=== PATIENT | female | born 1985 | race Caucasian/White ===

== ENCOUNTER → 2016-10-29 | Outpatient (CLI) | payer BC, OTHER ==
[2016-10-29 09:55] LABS: Basophils # (A) 0.1 k/uL (0-0.2); Basophils % (A) 1 %; CH 29.6; CHCM 31.7; Eosinophils # (A) 0.2 k/uL (0-0.7); Eosinophils % (A) 3 %; HCT 42.8 % (34.0-46.0); HDW 2.45; HGB 13.9 gm/dL (11.4-16.0); Luc # (Auto) 0.16; Luc % (Auto) 3; Lymphocytes # (A) 2.5 k/uL (1.0-4.8); Lymphocytes % (A) 45 %; MCH 30.6 pg (25.0-35.0); MCHC 32.6 g/dL (31.0-37.0); Mean Platelet Volume 7.2; Monocytes # (A) 0.4 k/uL (0-1.0); Monocytes % (A) 7 %; Neutrophils # (A) 2.3 k/uL (1.3-7.7); Neutrophils % (A) 42 %; RBC 4.55 m/uL (3.80-5.40); RDW 13.7 % (11.5-15.5); WBC 5.6 k/uL (3.8-10.6); WBC (Perox) 5.77
[2016-10-29 10:11] LABS: ALT 25 U/L (9-52); AST 13 U/L (14-36); Alkaline Phosphatase 60 U/L (38-126); Anion Gap 11 mmol/L; Blood Urea Nitrogen 10 mg/dL (7-17); Calcium 9.6 mg/dL (8.4-10.2); Carbon Dioxide 27 mmol/L (22-30); Chloride 104 mmol/L (98-107); Glucose 89 mg/dL (74-99); Non-African American GFR(MDRD) >60 (>60 ml/min/1.73 sqM); Potassium 4.6 mmol/L (3.5-5.1); Sodium 142 mmol/L (137-145); Total Bilirubin 0.8 mg/dL (0.2-1.3); Total Protein 7.3 g/dL (6.3-8.2)
[2016-10-29 10:25] LABS: Partial Thromboplastin Time 23.4 sec (22.0-30.0); Prothrombin Time 10.2 sec (9.0-12.0)
== END | disposition home or self-care (01) ==
LOC: LABWHC1 09:14
PROVIDERS: ATTEND Urology
DX: N20.0 Calculus of kidney (principal)
CPT/HCPCS: 36415; 80053; 85025; 85610; 85730

== ENCOUNTER → 2017-01-01 | Outpatient (CLI) | payer BC, OTHER ==
[2017-01-01 16:09] LABS: Basophils % (A) 1 %; CH 29.4; CHCM 32.8; Eosinophils # (A) 0.1 k/uL (0-0.7); Eosinophils % (A) 1 %; HCT 39.8 % (34.0-46.0); HDW 2.62; HGB 13.9 gm/dL (11.4-16.0); Luc # (Auto) 0.28; Luc % (Auto) 4; Lymphocytes % (A) 30 %; MCH 31.5 pg (25.0-35.0); MCHC 34.9 g/dL (31.0-37.0); MCV 90.1 fL (80.0-100.0); Mean Platelet Volume 7.2; Monocytes # (A) 0.8 k/uL (0-1.0); Monocytes % (A) 12 %; Neutrophils # (A) 3.4 k/uL (1.3-7.7); Neutrophils % (A) 51 %; RBC 4.41 m/uL (3.80-5.40); RDW 13.6 % (11.5-15.5); WBC 6.6 k/uL (3.8-10.6); WBC (Perox) 7.23
== END | disposition home or self-care (01) ==
LOC: LABWHC1 15:20
PROVIDERS: ATTEND Pediatrics
DX: R78.81 Bacteremia (principal)
CPT/HCPCS: 36415; 85025; 87040

== ENCOUNTER → 2018-03-24 | Outpatient (CLI) | payer BC, OTHER ==
--- NOTE | 2018-03-25 00:39 | CT ---
EXAMINATION TYPE: CT abdomen pelvis wo con DATE OF EXAM: 03/24/2018 COMPARISON: None HISTORY: 32-year-old female Kidney stones. CT DLP: 135.5 mGycm. Automated exposure control for dose reduction was used. TECHNIQUE: Contiguous axial scanning of the abdomen and pelvis without IV contrast. Coronal and sagit sheyla reconstructions performed. FINDINGS: Severe developmental deformity with hairpin curvature at the thoracolumbar junction with apex of the hairpin projecting posteriorly in the anterior vertebral body margin nearly in contact with each othe r. Visualized lung bases are clear. Only a small portion of the heart is seen. Lack of IV contrast limits assessment. Possible 2.6 cm soft tissue nodule near the right shazia of the diaphragm, referred axial image 27 and coronal image 41. Noncontrast appearance of the liver, gallbladder, left adrenal gland, and spleen show no gross abnorm ality. Pancreas is not well delineated from adjacent small bowel loops. Punctate 2 to 3 mm calculi are present throughout the right kidney. Numerous calculi are present on the left,, proximally 9 calculi measuring up to 9 mm. 1.2 cm hypodens e lesion upper pole left kidney too small fracture CT characterization, likely cysts. A couple 3 mm calculi are present in the upper left ureter just beyond the UPJ. Mild left-sided pelvi caliectasis. No dilated small bowel, free fluid, or free air. Cystic-appearing lesion measuring 2.1 cm right adnex a probably of ovarian origin. There is moderate to large stool burden with LEARNING DISABILITIES RESOURCE TEACHER shunt catheter present. There is circumferential wall thickening of the rectum with stool distention of the rectum up to 7.1 x 5.9 cm stool ball measuring up to 7.5 cm long. This may reflect fecal impaction. No abnormal fluid collection in the pelvis or pelvic lymphadenopathy identified. LEARNING DISABILITIES RESOURCE TEACHER shunt catheters are present within the lower abdomen and upper pelvis. Bones: Above-mentioned spine deformity. IMPRESSION: 1. Severe developmental deformity of the spine with posteriorly directed hairpin curvature at the th oracolumbar junction and the anterior vertebral body margins nearly in contact with each other. 2. Bilateral nephrolithiasis more numerous and larger in the left kidney measuring up to 9 mm. 3. A couple 3 mm calculi within the upper left ureter just beyond the UPJ but without any significant hydronephrosis. 4. Solid stool ball measuring 7.5 cm long and 7.1 cm wide excessively distending the rectum. Correlat e for fecal impaction. Note that there is moderate circumferential wall thickening of the rectum. Thi s may relate to venous congestion from chronic distention versus changes of stercoral colitis. Furthe r clinical correlation recommended. 5. Follow-up contrast-enhanced CT to exclude an abnormally enlarged 2.5 cm lymph node in the upper ri ght retroperitoneum.
== END | disposition home or self-care (01) ==
LOC: RADCTMAIN 19:05
PROVIDERS: ATTEND Urology
DX: N20.2 Calculus of kidney with calculus of ureter (principal); K62.89 Other specified diseases of anus and rectum
CPT/HCPCS: 74176

== ENCOUNTER → 2018-12-27 | Outpatient (CLI) | payer BC, OTHER ==
[2018-12-27 09:08] LABS: Basophils % (A) 1 %; Eosinophils # (A) 0.2 k/uL (0-0.7); Eosinophils % (A) 4 %; HCT 39.8 % (34.0-46.0); HGB 12.3 gm/dL (11.4-16.0); Hypochromasia Moderate; Lymphocytes # (A) 2.8 k/uL (1.0-4.8); Lymphocytes % (A) 49 %; MCH 27.8 pg (25.0-35.0); MCV 89.5 fL (80.0-100.0); Mean Platelet Volume 7.6; Monocytes # (A) 0.4 k/uL (0-1.0); Monocytes % (A) 7 %; Neutrophils # (A) 2.1 k/uL (1.3-7.7); Neutrophils % (A) 37 %; Platelet Count 272 k/uL (150-450); RBC 4.45 m/uL (3.80-5.40); RDW 14.5 % (11.5-15.5); WBC 5.7 k/uL (3.8-10.6)
[2018-12-27 16:03] LABS: African American GFR (CKD) 148.4 (60.0-200.0); Albumin 4.5 g/dL (3.80-4.90); Albumin/Globulin Ratio 1.8 (1.60-3.17); Anion Gap 8.9 mmol/L (4.00-12.00); Calcium 9.7 mg/dL (8.7-10.3); Carbon Dioxide 24.1 mmol/L (21.6-31.8); Globulin 2.5 g/dL (1.6-3.3); Phosphorus 3.6 mg/dL (2.4-5.1); Potassium 4.8 mmol/L (3.5-5.5); Total Bilirubin 0.5 mg/dL (0.3-1.2)
== END | disposition home or self-care (01) ==
LOC: LABWHC1 08:28
PROVIDERS: ATTEND Internal Medicine
DX: Z13.0 Encounter for screening for diseases of the blood and blood-forming organs and certain disorders involving the immune mechanism (principal); Z13.228 Encounter for screening for other metabolic disorders; Z13.220 Encounter for screening for lipoid disorders; Z13.29 Encounter for screening for other suspected endocrine disorder; Z87.442 Personal history of urinary calculi
CPT/HCPCS: 36415; 80053; 80061; 82306; 84100; 84443; 85025

== ENCOUNTER 2019-03-03 19:51 | Emergency (ER) | payer BC, OTHER ==
[2019-03-03 20:33] VITALS: BP 122/73; PULSE 77; RESP 16; TEMP 99.6
[2019-03-03] MEDS ORDERED: predniSONE 20 MG TAB PO STA (21:30)
[2019-03-03] MEDS ORDERED: AZITHROMYCIN 500 MG TAB PO STA (21:30)
[2019-03-03] MEDS ORDERED: OFLOXACIN 0.3% OPHTH DROPS 5 ML BOTTLE LEFT EAR STA (21:30)
--- NOTE | 2019-03-03 21:38 | ED ---
ENT HPI - General Chief complaint: ENT Stated complaint: Ear pain Time Seen by Provider: 03/03/19 21:12 Source: patient, family, RN notes reviewed, old records reviewed Mode of arrival: wheelchair Limitations: no limitations - History of Present Illness Initial comments: Patient is a 33-year-old female with history of hydrocephalus, spina bifida and kidney stones. She has been on chronic Bactrim for a kidney stone and infection prevention. She presents today with complaints of left ear pain for 2 days Patient dealing with left ear irritation for the past month. She's been on multiple decongestant medications. Patient is also concern for possibility of related to dental infection. This time she states she's had no fevers or chills. She denies any headache or neck pain. Patient states that she's had no cough or other significant congestion. - Related Data Home Medications Medication Instructions Recorded Confirmed Enalapril [Vasotec] 2.5 mg PO HS 03/03/19 03/03/19 Previous Rx's Medication Instructions Recorded Azithromycin [Zithromax Z-pack] 250 mg PO DIRECTED #4 tab 03/03/19 Ofloxacin 0.3% Otic Soln [Floxin 5 drops LEFT EAR BID #1 bottle 03/03/19 0.3% Otic Soln] methylPREDNISolone Dose Pack 4 mg PO DIRECTED #21 package 03/03/19 [Medrol Dose Pack] Allergies Allergy/AdvReac Type Severity Reaction Status Date / Time No Known Allergies Allergy Verified 03/03/19 21:20 Review of Systems ROS Statement: Those systems with pertinent positive or pertinent negative responses have been documented in the HPI. ROS Other: All systems not noted in ROS Statement are negative. Past Medical History Additional Past Medical History / Comment(s): hydrocephalus, spina bifida, kidney stones History of Any Multi-Drug Resistant Organisms: None Reported Additional Past Surgical History / Comment(s): VARNISHER PLASTICOATER shunt, reconstructive surgery on head Smoking Status: Never smoker Past Alcohol Use History: None Reported Past Drug Use History: None Reported General Exam - General Exam Comments Initial Comments: 33-year-old female. Alert and oriented. No distress. Limitations: no limitations General appearance: alert, in no apparent distress Head exam: Present: atraumatic, normocephalic, normal inspection Eye exam: Present: normal appearance, PERRL, EOMI. Absent: scleral icterus, conjunctival injection, periorbital swelling ENT exam: Present: normal exam, normal oropharynx (Erythema over L tm. ), mucous membranes moist Neck exam: Present: normal inspection. Absent: tenderness, meningismus, lymphadenopathy Respiratory exam: Present: normal lung sounds bilaterally. Absent: respiratory distress, wheezes, rales, rhonchi, stridor Cardiovascular Exam: Present: regular rate, normal rhythm, normal heart sounds. Absent: systolic murmur, diastolic murmur, rubs, gallop, clicks GI/Abdominal exam: Present: soft, normal bowel sounds. Absent: distended, tenderness, guarding, rebound, rigid Extremities exam: Present: normal inspection, full ROM, normal capillary refill. Absent: tenderness, pedal edema, joint swelling, calf tenderness Back exam: Present: normal inspection Neurological exam: Present: alert, oriented X3, CN II-XII intact Psychiatric exam: Present: normal affect, normal mood Skin exam: Present: warm, dry, intact, normal color. Absent: rash Course Vital Signs 03/03/19 20:27 Temperature 99.6 F Pulse Rate 77 Respiratory 16 Rate Blood Pressure 122/73 O2 Sat by Pulse 98 Oximetry Medical Decision Making - Medical Decision Making 33-year-old female presents emergency department today for evaluation with chief complaint of left ear pain. Patient does have some erythema noted to the left TM. Patient has a history of spina bifida wheelchair-bound. Patient at this time does have some sign of infection. She also has some swelling over the molar in her left lower jaw. At this time Patient will be discharged with prescription for steroids and anti-inflammatory medicine. Discussed Motrin Tylenol for pain. Discharged with of antibiotics for the ear. She is following up with an ENT specialist next week. Disposition Clinical Impression: Left middle ear infection Disposition: HOME SELF-CARE Condition: Good Instructions (If sedation given, give patient instructions): Earache (ED) Additional Instructions: Patient has a take Motrin and Tylenol for pain. Follow-up with PCP. Return to the emergency department if any alarming signs or symptoms occur. Take the medications as prescribed. Prescriptions: Ofloxacin 0.3% Otic Soln [Floxin 0.3% Otic Soln] 5 drops LEFT EAR BID #1 bottle methylPREDNISolone Dose Pack [Medrol Dose Pack] 4 mg PO DIRECTED #21 package Azithromycin [Zithromax Z-pack] 250 mg PO DIRECTED #4 tab Is patient prescribed a controlled substance at d/c from ED?: No Referrals: Elif Lopez MD [Primary Care Provider] - 1-2 days Cristi Petit DDS [STAFF PHYSICIAN] - 1-2 days Jose Luis Parker MD [STAFF PHYSICIAN] - 1-2 days Time of Disposition: 21:35
== END 2019-03-03 22:04 | disposition home or self-care (01) ==
LOC: EEVIPCON 19:51 → EC 19:51
DX: H66.92 Otitis media, unspecified, left ear (principal); R22.0 Localized swelling, mass and lump, head; Z99.3 Dependence on wheelchair; Z79.899 Other long term (current) drug therapy; Z86.69 Personal history of other diseases of the nervous system and sense organs; Z87.798 Personal history of other (corrected) congenital malformations; Z98.2 Presence of cerebrospinal fluid drainage device; Z98.890 Other specified postprocedural states
CPT/HCPCS: 99283; J7512

== ENCOUNTER → 2019-04-06 | Day surgery (SDC) | payer BC, OTHER ==
[2019-04-01 10:46] VITALS: BMI 11.5
[~2019-04-06] MED LIST: ACETAMINOPHEN ORAL SUSP 160 MG/5 ML CUP PO ONE; DEXAMETHASONE SOD PHOSPHATE 10 MG/ML 1 ML VIAL IV ONE; GELATIN SPONGE,ABSORB (SMALL) 1 EACH SPONGE TOPICAL ONE; HYDROmorphone 0.5 MG/0.5 ML SYRINGE IVP PRN; LACTATED RINGERS 1,000 ML IV SCH; LIDOCAINE 1% 20 ML VIAL (10MG/ML) FOR IV START INTRADERMA PRN; LIDOCAINE 1% INJ 10MG/ML (20 ML MDV) ONE; LIDOCAINE 2%-EPI 1:100,000 20 ML VIAL SUBMUCOSAL ONE; METRONIDAZOLE NS PMX IVPB ONE; MIDAZOLAM (PF) 2 MG/2 ML VIAL IV ONE; MIDAZOLAM ORAL SYRUP 10 MG/5 ML ORAL.SYRG PO ONE; ONDANSETRON 4 MG/2 ML VIAL IVP ONE; PROPOFOL 10 MG/ML 20 ML VIAL IV ONE; SALINE IVPB ONE; SCOPOLAMINE 1.5MG/72HR PATCH TRANSDERM ONE; ceFAZolin 1,000 MG VIAL IVPB ONE; diphenhydrAMINE 50 MG/ML 1 ML VIAL IVP ONE; metroNIDAZOLE-NS PMX 250 MG in SALINE 1 100ML.BAG IVPB ONE; metroNIDAZOLE-NS PMX 500 MG in SALINE 1 100ML.BAG IVPB ONE
[2019-04-06 08:27] VITALS: TEMP 97.4
--- NOTE | 2019-04-06 08:57 | OP ---
OPERATIVE REPORT DATE OF PROCEDURE: 04/06/2019 PREOPERATIVE DIAGNOSES: 1. Dental caries. 2. Abscessed tooth #12. POSTOPERATIVE DIAGNOSES: 1. Dental caries. 2. Abscessed tooth #12. SURGERY: Surgical extraction of teeth #12 and #13. SURGEON: Dr. Johnson. ANESTHESIA: General via the inhalational route. ESTIMATED BLOOD LOSS: 1 mL. FLUIDS: Crystalloid. DRAINS: None. COMPLICATIONS: None. SPECIMENS: None. INDICATIONS FOR PROCEDURE: The patient is a 33-year-old female who lives with her mother who is severely physically impaired secondary to her spina bifida. She states that she has acute pain to the upper left quadrant and that it is inhibiting her ability to eat. Patient is referred for the evaluation and extraction of teeth #12 and #13. Patient has severe anxiety from a traumatic event with a dentist in the past and requires deep sedation or general anesthetic to extract teeth #12 and #13. The risks, benefits, and alternatives of the procedure were reviewed with the patient and mother at length and all their questions answered to their satisfaction. The patient will undergo removal of teeth #12 and #13 in the OR setting. PROCEDURE: The patient was taken the operating room, placed on the operating table in the sitting position. The patient was then induced via the IV route and a general plane of anesthesia was maintained utilizing an inhalational mask technique. The patient was prepped and draped in usual manner. The surgeon approached the operative field and a throat pack was placed notifying both nursing and anesthesia. Next 2 mL of 2% lidocaine with 1:100,000 parts epinephrine was infiltrated into the region of 12 and 13 on the buccal and palatal aspect. Next, a 15 blade was utilized to develop a small flap and an elevator and forceps technique was utilized to remove teeth #12 and 13. Gel-Foam was then placed into the wound. Hemostasis was observed. The throat pack was then removed notifying both nursing and anesthesia. The patient tolerated the procedure well without complications. MMODL / IJN: [id number] /
[2019-04-06 09:09] VITALS: RESP 18
[2019-04-06 10:28] VITALS: BP 109/76; PULSE 111
== END ==
LOC: OR 06:30
PROVIDERS: ATTEND Dentist Oral and Maxillofacial Surgery
DX: K02.9 Dental caries, unspecified (principal); K04.7 Periapical abscess without sinus; F40.8 Other phobic anxiety disorders; I10 Essential (primary) hypertension; I34.1 Nonrheumatic mitral (valve) prolapse; Q07.03 Arnold-Chiari syndrome with spina bifida and hydrocephalus; M41.9 Scoliosis, unspecified; E55.9 Vitamin D deficiency, unspecified; J45.909 Unspecified asthma, uncomplicated; F81.9 Developmental disorder of scholastic skills, unspecified; H69.92 Unspecified Eustachian tube disorder, left ear; Z99.3 Dependence on wheelchair; Z87.442 Personal history of urinary calculi; Z91.040 Latex allergy status; Z79.899 Other long term (current) drug therapy; Z88.8 Allergy status to other drugs, medicaments and biological substances; Z98.890 Other specified postprocedural states
CPT/HCPCS: 41899; J1200; J2405; J0690; J2001; J2704; J2250

== ENCOUNTER 2021-10-30 09:12 | Emergency (ER) | payer MEDICARE, OTHER ==
[2021-10-30 13:07] VITALS: BP 103/67; PULSE 132; RESP 18; TEMP 98.9
--- NOTE | 2021-10-30 13:07 | ED ---
General Adult HPI - General Stated complaint: Abd Pain, Fever Time Seen by Provider: 10/30/21 12:54 - History of Present Illness Initial comments: This 35-year-old female presents emergency Department with abdominal pain and fever times one day. Mother in room states patient was diagnosed with pneumonia on 10/25/21 and was given Augmentin which patient has been taking as directed. Patient states her cough has subsided since been placed on this antibiotic and her fever did resolve for 3 days before returning yesterday evening. Patient states she has been experiencing right upper quadrant abdominal pain along with diarrhea since yesterday. Patient states she does have a history of kidney stones which are closely being monitored. States she has a history of vesicotomy. Patient states she has a history of GYROSCOPE REPAIRER shunt since , she denies any neuro systems or headache. Patient states her abdominal pain is 8/10 and aching in nature. Patient did have a temperature of 102.6 today and was given Motrin prior to presenting to the emergency department. Patient denies any chest pain, nausea, vomiting, constipation, change in bladder, headache, lightheadedness, dizziness, cough, congestion. - Related Data Home Medications Medication Instructions Recorded Confirmed Enalapril [Vasotec] 2.5 mg PO HS 03/03/19 04/06/19 Amoxic-Pot Clav 600-42.9MG/5Ml 6.6 ml PO Q12H 10/30/21 10/30/21 [Augmentin 600-42.9 mg/5 ml Liquid] Allergies Allergy/AdvReac Type Severity Reaction Status Date / Time latex AdvReac dad states Verified 10/30/21 18:02 "hx no rx but used as precautionary" Review of Systems ROS Statement: Those systems with pertinent positive or pertinent negative responses have been documented in the HPI. ROS Other: All systems not noted in ROS Statement are negative. 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,vesicotomy-urine drains into brief, kidney stones,hydrocephalus,chiari malformation type II,mitral valve regurgitation,scoliosis,focal seizures-no seizures in years History of Any Multi-Drug Resistant Organisms: None Reported Additional Past Surgical History / Comment(s): GYROSCOPE REPAIRER shunt-approx 50 surgeries/revisions, reconstructive surgery on head,mult kidney stones procedures,vesicotomy.(greater than 60 surgeries altogether) Past Anesthesia/Blood Transfusion Reactions: Previous Problems w/ Anesthesia Additional Past Anesthesia/Blood Transfusion Reaction / Comment(s): mom-LG, stated "Dorina had a problems being extubated post kidney stone procedure and was on the ventilator 1 1/2 days awake trying to be weaned off. Procedure was at [facility] Aug 2012. But also states has had surgeries after this with general anesthesia without any difficulty,has had over 60 surgeries", faxed request for Anesthesia Record,Pulmonary note, discharge summary for reference.Very sensitive gag reflex. no hx blood transfusion Past Psychological History: Anxiety Past Alcohol Use History: None Reported Past Drug Use History: None Reported - Past Family History Mother Family Medical History: No Reported History General Exam General appearance: alert, in no apparent distress Head exam: Present: atraumatic, normocephalic, normal inspection Eye exam: Present: normal appearance, PERRL, EOMI. Absent: scleral icterus, conjunctival injection, periorbital swelling Pupils: Present: normal accommodation ENT exam: Present: normal exam, mucous membranes moist Neck exam: Present: normal inspection, full ROM. Absent: tenderness, meningismus, lymphadenopathy Respiratory exam: Present: normal lung sounds bilaterally. Absent: respiratory distress, wheezes, rales, rhonchi, stridor, chest wall tenderness Cardiovascular Exam: Present: regular rate, normal rhythm, normal heart sounds. Absent: systolic murmur, diastolic murmur, rubs, gallop, clicks GI/Abdominal exam: Present: soft, tenderness (Right upper quadrant tender to deep palpation), normal bowel sounds. Absent: distended, guarding, rebound, rigid Extremities exam: Present: normal inspection, full ROM, normal capillary refill. Absent: tenderness, pedal edema, joint swelling, calf tenderness Back exam: Absent: normal inspection (Patient with spina bifida- patient unable to feel below her waist which has been ongoing for years no new symptoms), CVA tenderness (R), CVA tenderness (L), paraspinal tenderness, vertebral tenderness Neurological exam: Present: alert, oriented X3, CN II-XII intact Psychiatric exam: Present: normal affect, normal mood Skin exam: Present: warm, dry, intact, normal color. Absent: rash Course Vital Signs 10/30/21 13:02 Temperature 98.9 F Pulse Rate 132 H Respiratory 18 Rate Blood Pressure 103/67 O2 Sat by Pulse 95 Oximetry Medical Decision Making - Medical Decision Making This 35-year-old female presents emergency department with abdominal pain and fever times one day. Patient was diagnosed with pneumonia 5 days ago, her fever and cough have subsided up until yesterday when her fever returned. Chest x-ray without any evidence of acute cardiopulmonary disease. Ultrasound gallbladder w ith possible hemangioma within the liver. No suspicious acute changes to account for epigastric pain. Gallbladder within normal limits-- I did instruct patient to follow-up with her primary care provider for the possible hemangioma. Patient without any leukocytosis. Coagulation unremarkable. Potassium 3.0, oral potassium given. Lactic acid 2.4, 500 L normal saline bolus given to patient. Coronavirus detected. Urine sent for culture. Patient's mother in room states patient's heart rate is regularly tachycardic and in the 115-[address] for years. Patient instructed to follow up with her primary care provider in next 1-2 days. Strict return precautions were discussed. Patient and mother verbally agreed to plan. Patient sent home in stable condition. Case discussed in detail my attending, . - Lab Data Result diagrams: 10/30/21 14:23 10/30/21 14:23 Lab Results 10/30/21 10/30/21 10/30/21 Range/Units 14:23 14:23 14:23 WBC 9.0 (3.8-10.6) k/uL RBC 4.54 (3.80-5.40) m/uL Hgb 13.8 (11.4-16.0) gm/dL Hct 41.8 (34.0-46.0) % MCV 92.1 (80.0-100.0) fL MCH 30.5 (25.0-35.0) pg MCHC 33.1 (31.0-37.0) g/dL RDW 13.8 (11.5-15.5) % Plt Count 149 L (150-450) k/uL MPV 9.0 PT 10.2 (9.0-12.0) sec INR 0.9 (<1.2) APTT 26.7 (22.0-30.0) sec Sodium 136 L (137-145) mmol/L Potassium 3.0 L (3.5-5.1) mmol/L Chloride 101 (98-107) mmol/L Carbon Dioxide 25 (22-30) mmol/L Anion Gap 10 mmol/L BUN 8 (7-17) mg/dL Creatinine 0.44 L (0.52-1.04) mg/dL Est GFR (CKD-EPI)AfAm >90 (>60 ml/min/1.73 sqM) Est GFR (CKD-EPI)NonAf >90 (>60 ml/min/1.73 sqM) Glucose 107 H (74-99) mg/dL Lactic Ac Sepsis Rflx Plasma Lactic Acid Alonzo (0.7-2.0) mmol/L Calcium 8.3 L (8.4-10.2) mg/dL Total Bilirubin 1.7 H (0.2-1.3) mg/dL AST 17 (14-36) U/L ALT 13 (4-34) U/L Alkaline Phosphatase 56 (38-126) U/L Total Protein 6.2 L (6.3-8.2) g/dL Albumin 3.2 L (3.5-5.0) g/dL Amylase 42 (30-110) U/L Lipase 19 L (23-300) U/L Urine Color Urine Appearance (Clear) Urine pH (5.0-8.0) Ur Specific [place] (1.001-1.035) Urine Protein (Negative) Urine Glucose (UA) (Negative) Urine Ketones (Negative) Urine Blood (Negative) Urine Nitrite (Negative) Urine Bilirubin (Negative) Urine Urobilinogen (<2.0) mg/dL Ur Leukocyte Esterase (Negative) Urine RBC (0-5) /hpf Urine WBC (0-5) /hpf Ur Squamous Epith Cells (0-4) /hpf Urine Mucus (None) /hpf Urine HCG, Qual (Not Detectd) Coronavirus (PCR) (Not Detectd) Influenza Type A RNA (Not Detectd) Influenza Type B (PCR) (Not Detectd) 10/30/21 10/30/21 10/30/21 Range/Units 14:23 15:33 16:10 WBC (3.8-10.6) k/uL RBC (3.80-5.40) m/uL Hgb (11.4-16.0) gm/dL Hct (34.0-46.0) % MCV (80.0-100.0) fL MCH (25.0-35.0) pg MCHC (31.0-37.0) g/dL RDW (11.5-15.5) % Plt Count (150-450) k/uL MPV PT (9.0-12.0) sec INR (<1.2) APTT (22.0-30.0) sec Sodium (137-145) mmol/L Potassium (3.5-5.1) mmol/L Chloride (98-107) mmol/L Carbon Dioxide (22-30) mmol/L Anion Gap mmol/L BUN (7-17) mg/dL Creatinine (0.52-1.04) mg/dL Est GFR (CKD-EPI)AfAm (>60 ml/min/1.73 sqM) Est GFR (CKD-EPI)NonAf (>60 ml/min/1.73 sqM) Glucose (74-99) mg/dL Lactic Ac Sepsis Rflx Y Plasma Lactic Acid Alonzo 2.4 H* (0.7-2.0) mmol/L Calcium (8.4-10.2) mg/dL Total Bilirubin (0.2-1.3) mg/dL AST (14-36) U/L ALT (4-34) U/L Alkaline Phosphatase (38-126) U/L Total Protein (6.3-8.2) g/dL Albumin (3.5-5.0) g/dL Amylase (30-110) U/L Lipase (23-300) U/L Urine Color Urine Appearance (Clear) Urine pH (5.0-8.0) Ur Specific [place] (1.001-1.035) Urine Protein (Negative) Urine Glucose (UA) (Negative) Urine Ketones (Negative) Urine Blood (Negative) Urine Nitrite (Negative) Urine Bilirubin (Negative) Urine Urobilinogen (<2.0) mg/dL Ur Leukocyte Esterase (Negative) Urine RBC (0-5) /hpf Urine WBC (0-5) /hpf Ur Squamous Epith Cells (0-4) /hpf Urine Mucus (None) /hpf Urine HCG, Qual (Not Detectd) Coronavirus (PCR) (Not Detectd) Influenza Type A RNA Not Detected (Not Detectd) Influenza Type B (PCR) Not Detected (Not Detectd) 10/30/21 10/30/21 10/30/21 Range/Units 16:10 17:10 17:10 WBC (3.8-10.6) k/uL RBC (3.80-5.40) m/uL Hgb (11.4-16.0) gm/dL Hct (34.0-46.0) % MCV (80.0-100.0) fL MCH (25.0-35.0) pg MCHC (31.0-37.0) g/dL RDW (11.5-15.5) % Plt Count (150-450) k/uL MPV PT (9.0-12.0) sec INR (<1.2) APTT (22.0-30.0) sec Sodium (137-145) mmol/L Potassium (3.5-5.1) mmol/L Chloride (98-107) mmol/L Carbon Dioxide (22-30) mmol/L Anion Gap mmol/L BUN (7-17) mg/dL Creatinine (0.52-1.04) mg/dL Est GFR (CKD-EPI)AfAm (>60 ml/min/1.73 sqM) Est GFR (CKD-EPI)NonAf (>60 ml/min/1.73 sqM) Glucose (74-99) mg/dL Lactic Ac Sepsis Rflx Plasma Lactic Acid Alonzo (0.7-2.0) mmol/L Calcium (8.4-10.2) mg/dL Total Bilirubin (0.2-1.3) mg/dL AST (14-36) U/L ALT (4-34) U/L Alkaline Phosphatase (38-126) U/L Total Protein (6.3-8.2) g/dL Albumin (3.5-5.0) g/dL Amylase (30-110) U/L Lipase (23-300) U/L Urine Color Yellow Urine Appearance Clear (Clear) Urine pH 7.0 (5.0-8.0) Ur Specific [place] 1.013 (1.001-1.035) Urine Protein 2+ H (Negative) Urine Glucose (UA) Negative (Negative) Urine Ketones 2+ H (Negative) Urine Blood Small H (Negative) Urine Nitrite Negative (Negative) Urine Bilirubin Negative (Negative) Urine Urobilinogen 2.0 (<2.0) mg/dL Ur Leukocyte Esterase Large H (Negative) Urine RBC 1 (0-5) /hpf Urine WBC 11 H (0-5) /hpf Ur Squamous Epith Cells <1 (0-4) /hpf Urine Mucus Rare H (None) /hpf Urine HCG, Qual Not Detected (Not Detectd) Coronavirus (PCR) Detected A (Not Detectd) Influenza Type A RNA (Not Detectd) Influenza Type B (PCR) (Not Detectd) Disposition Clinical Impression: Abdominal pain, COVID-19, Hypokalemia Disposition: HOME SELF-CARE Condition: Stable Instructions (If sedation given, give patient instructions): COVID-19 (Cor onavirus Disease 2019) (ED) Additional Instructions: Please follow-up with your primary care provider next 1-2 days. Return to the emergency department with any new, worsening or concerning symptoms. Take Tylenol for fever relief as directed. Is patient prescribed a controlled substance at d/c from ED?: No Referrals: Elif Lopez MD [Primary Care Provider] - 1-2 days Time of Disposition: 17:51
[2021-10-30 14:54] LABS: HCT 41.8 % (34.0-46.0); HGB 13.8 gm/dL (11.4-16.0); MCH 30.5 pg (25.0-35.0); MCHC 33.1 g/dL (31.0-37.0); MCV 92.1 fL (80.0-100.0); Platelet Count 149 k/uL (150-450); RBC 4.54 m/uL (3.80-5.40); RDW 13.8 % (11.5-15.5)
[2021-10-30 14:58] LABS: INR 0.9 (<1.2); Partial Thromboplastin Time 26.7 sec (22.0-30.0); Prothrombin Time 10.2 sec (9.0-12.0)
[2021-10-30 15:16] LABS: ALT 13 U/L (4-34); AST 17 U/L (14-36); African American GFR (CKD) >90 (>60 ml/min/1.73 sqM); Albumin 3.2 g/dL (3.5-5.0); Alkaline Phosphatase 56 U/L (38-126); Amylase 42 U/L (30-110); Anion Gap 10 mmol/L; Blood Urea Nitrogen 8 mg/dL (7-17); Calcium 8.3 mg/dL (8.4-10.2); Carbon Dioxide 25 mmol/L (22-30); Chloride 101 mmol/L (98-107); Glucose 107 mg/dL (74-99); Lipase 19 U/L (23-300); Non-African American GFR(CKD) >90 (>60 ml/min/1.73 sqM); Sodium 136 mmol/L (137-145); Total Bilirubin 1.7 mg/dL (0.2-1.3); Total Protein 6.2 g/dL (6.3-8.2)
--- NOTE | 2021-10-30 15:19 | US ---
EXAMINATION TYPE: US gallbladder DATE OF EXAM: 10/30/2021 COMPARISON: CT CLINICAL HISTORY: pain. EC patient with Epigastric pain; spina bifida, scoliosis EXAM MEASUREMENTS: Liver Length: 8.0 cm Gallbladder Wall: 0.2 cm CBD: 0.1 cm Right Kidney: 6.1 x 2.9 x 2.5 cm Pancreas: not seen due to overlying bowel gas Liver: hyperechoic oval mass at periphery left lobe = 0.8 x 0.6 x 0.5cm and may be hemangioma Gallbladder: wnl Evidence for sonographic Baeza's sign: no CBD: wnl Right Kidney: visualized right coronal plane; no renal stones visualized today IMPRESSION: 1. Possible hemangioma within the liver discussed above. 2. No suspicious acute changes to account for epigastric pain. 3. Pancreas not visualized during this exam
[2021-10-30] MEDS ORDERED: ACETAMINOPHEN TAB 325 MG TAB PO STA (15:29)
[2021-10-30] MEDS ORDERED: SODIUM CHLORIDE 0.9% 500 ML 500 ML IV STA (15:35)
--- NOTE | 2021-10-30 17:03 | XR ---
EXAMINATION TYPE: XR chest 2V DATE OF EXAM: 10/30/2021 COMPARISON: NONE HISTORY: Fever TECHNIQUE: 2 views FINDINGS: There is severe dextroscoliotic kyphotic deformity of the thoracolumbar spine. Lungs appear clear of infiltrate. Heart size is normal. No evidence of pleural effusion. IMPRESSION: No evidence of active cardiopulmonary disease.
[2021-10-30] MEDS ORDERED: POTASSIUM CHLORIDE ER 20 MEQ TAB.ER PO STA (17:12)
[2021-10-30 17:33] LABS: Appearance,Urine Clear (Clear); Bilirubin,Urine Negative (Negative); Blood,Urine Small (Negative); Color,Urine Yellow; Glucose,Urine (UA) Negative (Negative); Ketones,Urine 2+ (Negative); Leukocyte Esterase,Urine Large (Negative); Mucus,Urine Rare /hpf; Nitrite,Urine Negative (Negative); Protein,Urine 2+ (Negative); RBC,Urine 1 /hpf (0-5); Specific Gravity,Urine 1.013 (1.001-1.035); Squamous Epithelial Cell,Urine <1 /hpf (0-4); WBC,Urine 11 /hpf (0-5)
[2021-10-30 18:46] LABS: Band Neutrophils % 3 %; Monocytes # (M) 0.54 k/uL (0-1.0); Neutrophils % (M) 81 %; Nucleated Red Blood Cells 0 /100 WBC (0-0); Total Cells Counted 100
[2021-10-30 18:48] LABS: RBC Morphology Normal
== END 2021-10-30 19:00 | disposition home or self-care (01) ==
LOC: EC 09:12
DX: U07.1 COVID-19 (principal); E87.6 Hypokalemia; I10 Essential (primary) hypertension; Z79.899 Other long term (current) drug therapy
CPT/HCPCS: 36415; 71046; 76705; 80053; 81001; 81025; 82150; 83605; 83690; 85025; 85610; 85730; 87086; 87502; 87635; 96360; 96361; 99284

== ENCOUNTER 2021-10-31 00:51 | Inpatient (IN) | payer MEDICARE, OTHER ==
--- NOTE | 2021-10-31 05:21 | ED ---
Abdominal Pain HPI - General Chief Complaint: Abdominal Pain Stated Complaint: Abdominal Pain Time Seen by Provider: 10/31/21 04:47 Source: patient, family Mode of arrival: wheelchair Limitations: physical limitation - History of Present Illness Initial Comments: Dorina is a 35-year-old female with a history of spina bifida multiple surgeries in the past. Patient presents the ER today for reevaluation of abdominal discomfort, nausea, vomiting, diarrhea. Patient was evaluated earlier diagnosed with COVID-19 pneumonia. She is also noted to be hypokalemic and given oral potassium which she reports caused multiple episodes of vomiting. - Related Data Home Medications Medication Instructions Recorded Confirmed Enalapril [Vasotec] 2.5 mg PO HS 03/03/19 10/31/21 Amoxic-Pot Clav 600-42.9MG/5Ml 6.6 ml PO Q12H 10/30/21 10/31/21 [Augmentin 600-42.9 mg/5 ml Liquid] Allergies Allergy/AdvReac Type Severity Reaction Status Date / Time latex AdvReac dad states Verified 10/31/21 07:34 "hx no rx but used as precautionary" Review of Systems ROS Statement: Those systems with pertinent positive or pertinent negative responses have been documented in the HPI. ROS Other: All systems not noted in ROS Statement are negative. 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 Procedure was at [facility] Aug 2012. But also states has had surgeries after this with general anesthesia without any difficulty,has had over 60 surgeries", faxed request for Anesthesia Record,Pulmonary note, discharge summary for reference .Very sensitive gag reflex. no hx blood transfusion Past Psychological History: Anxiety Past Alcohol Use History: None Reported Past Drug Use History: None Reported - Past Family History Mother Family Medical History: No Reported History General Exam - General Exam Comments Initial Comments: Physical Exam GENERAL: No acute distress HENT: Microcephalic, surgical scars noted EYES: PERRL PULMONARY: Unlabored respirations. CARDIOVASCULAR: RRR ABDOMEN: Soft, distended, non-peritoneal SKIN: No rashes or bruising : Deferred urostomy in lower abdomen NEUROLOGIC: Alert and oriented MUSCULOSKELETAL: Underdevelopment of limbs, paraplegia PSYCHIATRIC: No SI/HI Limitations: physical limitation Course Vital Signs 10/31/21 10/31/21 10/31/21 01:11 07:46 09:56 Temperature 98.2 F 98.5 F Pulse Rate 127 H 129 H 150 H Respiratory 18 16 20 Rate Blood Pressure 110/75 116/76 130/91 O2 Sat by Pulse 98 97 100 Oximetry 10/31/21 10/31/21 10/31/21 11:36 14:00 21:37 Temperature 98.1 F 97.1 F L Pulse Rate 141 H 144 H 147 H Respiratory 18 22 Rate Blood Pressure 110/76 106/68 O2 Sat by Pulse 94 L 98 97 Oximetry 10/31/21 21:46 Temperature Pulse Rate 146 H Respiratory Rate Blood Pressure O2 Sat by Pulse Oximetry Medical Decision Making - Medical Decision Making Patient was seen and evaluated, history is obtained from the patient and her caregiver. Patient reports persistent vomiting diarrhea abdominal distention and abdominal discomfort. Repeat labs were obtained - Lab Data Result diagrams: 10/31/21 22:44 10/31/21 22:44 Lab Results 10/31/21 10/31/21 Range/Units 05:22 05:22 WBC 7.7 (3.8-10.6) k/uL RBC 4.81 (3.80-5.40) m/uL Hgb 14.8 (11.4-16.0) gm/dL Hct 44.2 (34.0-46.0) % MCV 92.1 (80.0-100.0) fL MCH 30.8 (25.0-35.0) pg MCHC 33.4 (31.0-37.0) g/dL RDW 14.6 (11.5-15.5) % Plt Count 205 (150-450) k/uL MPV 8.9 Neutrophils % 83 % Lymphocytes % 7 % Monocytes % 6 % Eosinophils % 0 % Basophils % 1 % Neutrophils # 6.4 (1.3-7.7) k/uL Lymphocytes # 0.6 L (1.0-4.8) k/uL Monocytes # 0.5 (0-1.0) k/uL Eosinophils # 0.0 (0-0.7) k/uL Basophils # 0.1 (0-0.2) k/uL Sodium 142 (137-145) mmol/L Potassium 3.5 (3.5-5.1) mmol/L Chloride 105 (98-107) mmol/L Carbon Dioxide 23 (22-30) mmol/L Anion Gap 14 mmol/L BUN 17 (7-17) mg/dL Creatinine 0.61 (0.52-1.04) mg/dL Est GFR (CKD-EPI)AfAm >90 (>60 ml/min/1.73 sqM) Est GFR (CKD-EPI)NonAf >90 (>60 ml/min/1.73 sqM) Glucose 69 L (74-99) mg/dL Calcium 8.5 (8.4-10.2) mg/dL Total Bilirubin 1.7 H (0.2-1.3) mg/dL AST 16 (14-36) U/L ALT 11 (4-34) U/L Alkaline Phosphatase 63 (38-126) U/L Total Protein 6.4 (6.3-8.2) g/dL Albumin 3.3 L (3.5-5.0) g/dL - EKG Data -: EKG Interpreted by Nv EKG Comments: EKG was obtained due to tachycardia, EKG obtained at 1:35 AM, rate 122 rhythm sinus tach with short [place] no obvious acute ST elevations or depressions no evidence of ischemia or infarction Disposition Clinical Impression: SBO (small bowel obstruction), COVID-19 Disposition: ADMITTED IP TO THIS [facility] Condition: Serious
[2021-10-31 06:19] LABS: Basophils # (A) 0.1 k/uL (0-0.2); Basophils % (A) 1 %; Eosinophils % (A) 0 %; HCT 44.2 % (34.0-46.0); HGB 14.8 gm/dL (11.4-16.0); Lymphocytes # (A) 0.6 k/uL (1.0-4.8); Lymphocytes % (A) 7 %; MCH 30.8 pg (25.0-35.0); MCHC 33.4 g/dL (31.0-37.0); MCV 92.1 fL (80.0-100.0); Mean Platelet Volume 8.9; Monocytes # (A) 0.5 k/uL (0-1.0); Monocytes % (A) 6 %; Neutrophils # (A) 6.4 k/uL (1.3-7.7); Neutrophils % (A) 83 %; Platelet Count 205 k/uL (150-450); RBC 4.81 m/uL (3.80-5.40); RDW 14.6 % (11.5-15.5); WBC 7.7 k/uL (3.8-10.6)
[2021-10-31] MEDS ORDERED: MORPHINE SULFATE 2 MG/ML SYRINGE IVP STA ×2 (06:26)
[2021-10-31 06:28] LABS: ALT 11 U/L (4-34); AST 16 U/L (14-36); African American GFR (CKD) >90 (>60 ml/min/1.73 sqM); Albumin 3.3 g/dL (3.5-5.0); Alkaline Phosphatase 63 U/L (38-126); Anion Gap 14 mmol/L; Blood Urea Nitrogen 17 mg/dL (7-17); Calcium 8.5 mg/dL (8.4-10.2); Carbon Dioxide 23 mmol/L (22-30); Chloride 105 mmol/L (98-107); Glucose 69 mg/dL (74-99); Non-African American GFR(CKD) >90 (>60 ml/min/1.73 sqM); Potassium 3.5 mmol/L (3.5-5.1); Sodium 142 mmol/L (137-145); Total Bilirubin 1.7 mg/dL (0.2-1.3); Total Protein 6.4 g/dL (6.3-8.2)
--- NOTE | 2021-10-31 07:06 | CT ---
EXAMINATION TYPE: CT abdomen pelvis w con DATE OF EXAM: 10/31/2021 HISTORY: pain, nausea and vomiting CT DLP: 343.8mGycm Automated Exposure Control for Dose Reduction was Utilized. CONTRAST: CT scan of the abdomen and pelvis is performed without oral but with IV Contrast, patient injected wi th 42 mL of Isovue 300. COMPARISON: CT abdomen and pelvis March 24, 2018 FINDINGS: Exam limited due to underlying marked scoliosis distorting normal anatomy LUNG BASES: No significant abnormality is appreciated. LIVER/GB: No significant abnormality is appreciated. PANCREAS: No significant abnormality is seen. SPLEEN: No significant abnormality is seen. ADRENALS: No significant abnormality is seen. KIDNEYS: Bilateral renal calculi redemonstrated more numerous and larger in the left kidney versus ri ght kidney. No visualized excretion on delayed images. No obvious hydronephrosis. BOWEL: Mild to moderately dilated stomach with air-fluid level. Few prominent and slightly dilated sm all bowel loops in the upper to mid abdomen with air-fluid levels. There are nondistended fluid fille d small bowel loops in the lower abdomen and pelvis. UTERUS/ADNEXA: No gross abnormality seen. LYMPH NODES: No greater than 1cm abdominal or pelvic lymph nodes are appreciated. OSSEOUS STRUCTURES: Spinal deformity redemonstrated. OTHER: Persistent percutaneous pelvic catheter presumed for peritoneal dialysis. IMPRESSION: Possible partial or developing mid small bowel obstruction. Correlate clinically.
[2021-10-31] MEDS ORDERED: NALOXONE 0.4 MG/ML 1 ML VIAL IV PRN (07:20)
[2021-10-31] MEDS ORDERED: ONDANSETRON 4 MG/2 ML VIAL IVP PRN (07:20)
[2021-10-31] MEDS: PANTOPRAZOLE 40 MG/10 ML VIAL IV SCH (08:02)
[2021-10-31] MEDS ORDERED: IOPAMIDOL CONTRAST (ORAL USE) VIAL PO PRN (08:10)
[2021-10-31] MEDS: SODIUM CHLORIDE 0.9% 1,000 ML IV SCH ×2 (08:47→22:50)
[2021-10-31] MEDS: MORPHINE SULFATE 2 MG/ML SYRINGE IV PRN ×2 (09:58→20:18)
--- NOTE | 2021-10-31 10:54 | CT ---
EXAMINATION TYPE: CT abdomen pelvis wo con DATE OF EXAM: 10/31/2021 HISTORY: sbo, recent abnormal CT. CT DLP: 261.2 mGycm. Automated Exposure Control for Dose Reduction was Utilized. TECHNIQUE: CT scan of the abdomen and pelvis is performed with oral but without IV contrast. COMPARISON: CT abdomen and pelvis earlier today and older study March 24, 2018 FINDINGS: Within the limitations of a non-contrast study, the following observations are made. Exam remains limited due to underlying marked scoliosis distorting normal anatomy LUNG BASES: Calcification or level of mitral valve redemonstrated LIVER/GB: No significant abnormality is appreciated. PANCREAS: No significant abnormality is seen. SPLEEN: No significant abnormality is seen. ADRENALS: No significant abnormality is seen. KIDNEYS: Bilateral renal calculi redemonstrated with excretion from contrast given earlier today stil l seen. No obvious hydronephrosis. BOWEL: Moderately distended stomach more prominent from prior study with air-fluid level occupying ma jority of the ingested contrast. Persistent prominent and slightly dilated small bowel loops in the u pper to mid abdomen with air-fluid levels filling with early diluted contrast measuring up to 3.7 cm in diameter axial image 35 also slightly more prominent from prior. There are less prominent fluid fi lled small bowel loops in the lower abdomen and pelvis redemonstrated. UTERUS/ADNEXA: Less well-seen on this study without IV contrast. LYMPH NODES: No greater than 1cm abdominal or pelvic lymph nodes are appreciated. OSSEOUS STRUCTURES: Spinal deformity redemonstrated. OTHER: Persistent percutaneous pelvic catheter presumed for peritoneal dialysis. IMPRESSION: Suboptimal study due to underlying deformity once again noted. Findings suggest proximal to mid small bowel obstruction.
[2021-10-31 11:15] LABS: Amylase <30 U/L (30-110); Lipase <10 U/L (23-300)
[2021-10-31 11:33] LABS: Glucose,Whole Blood 85 mg/dL (75-99)
--- NOTE | 2021-10-31 13:23 | P.GSCN ---
History of Present Illness Consult date: 10/31/21 History of present illness: CHIEF COMPLAINT: Abdominal pain HISTORY OF PRESENT ILLNESS: This is a 35-year-old female with a history of spina bifida and hypoplasia of the lower extremities. She has had multiple surgeries for her spina bifida. She presents to the hospital with complaints of abdominal pain with nausea and vomiting that started yesterday. She also is having some diarrhea. There were concerns initially of constipation due to her abdominal distention they gave an enema with multiple bowel movements. Since then she's had no further gas. She had one episode of loose stool yesterday. Her abdomen is more distended than usual and she has tenderness in the upper abdomen. She has been tachycardic. She had a computed tomography scan abdomen and pelvis with IV contrast showing possible partial or developing mid small bowel obstruction. Patient had computed tomography scan abdomen and pelvis with oral contrast which was a suboptimal study due to underlying deformity. Findings suggest proximal to mid small bowel obstruction. Patient had been having fevers. She was recently diagnosed with COVID-19. Her cough has resolved. Patient seen and examined with Dr. 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 MEDICATIONS: See list. ALLERGIES: See list. SOCIAL HISTORY: No illicit drug use. REVIEW OF SYSTEMS: CONSTITUTIONAL: Denies fever or chills. HEENT: Denies blurred vision, vision changes, or eye pain. Denies hemoptysis CARDIOVASCULAR: Denies chest pain or pressure. RESPIRATORY: No shortness of breath. GASTROINTESTINAL: See HPI for pertinent findings HEMATOLOGIC: Denies bleeding disorders. GENITOURINARY: Denies any blood in urine or increased urinary frequency. SKIN: Denies pruitis. Denies rash. PHYSICAL EXAM: VITAL SIGNS: Reviewed GENERAL: Well-developed in no acute distress. HEENT: No sclera icterus. Extraocular movements grossly intact. Moist buccal mucosa. Head is atraumatic, normocephalic. No nasal drainage. ABDOMEN: Distended. Tenderness to palpation of the upper abdomen NEUROLOGIC: Alert and oriented. Cranial nerves II through XII grossly intact. LABORATORY DATA: WBC is 7.7 hemoglobin 14.8 platelets 205 Sodium 142 potassium 3.5 creatinine 0.61 Lactic serum 0.8 Total bili 1.7 LFTs normal IMAGING: Computed tomography scan abdomen and pelvis as stated above ASSESSMENT: 1. Proximal to mid small bowel obstruction 2. Abdominal pain with abdominal distention 3. History of spina bifida with multiple surgeries 4. History of vesicotomy PLAN: -Recommend transfer to tertiary care center due to patient's complex medical history and SBO -Keep patient nothing by mouth -Continue IV fluids -Continue pain medication as needed Physician Door Machine Operator note has been reviewed by physician. Signing provider agrees with the documented findings, assessment, and plan of care. 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 Procedure was at [facility] Aug 2012. But also states has had surgeries after this with general anesthesia without any difficulty,has had over 60 surgeries", faxed request for Anesthesia Record,Pulmonary note, discharge summary for reference.Very sensitive gag reflex. no hx blood transfusion Past Psychological History: Anxiety Past Alcohol Use History: None Reported Past Drug Use History: None Reported - Past Family History Mother Family Medical History: No Reported History Medications and Allergies Home Medications Medication Instructions Recorded Confirmed Type Enalapril [Vasotec] 2.5 mg PO HS 03/03/19 10/31/21 History Amoxic-Pot Clav 600-42.9MG/5Ml 6.6 ml PO Q12H 10/30/21 10/31/21 History [Augmentin 600-42.9 mg/5 ml Liquid] Allergies Allergy/AdvReac Type Severity Reaction Status Date / Time latex AdvReac dad states Verified 10/31/21 07:34 "hx no rx but used as precautionary" Surgical - Exam Vital Signs Temp Pulse Resp BP Pulse Ox 98.2 F 127 H 18 110/75 98 10/31/21 01:11 10/31/21 01:11 10/31/21 01:11 10/31/21 01:11 10/31/21 01:11 Results - Labs 10/31/21 05:22 10/31/21 05:22 Abnormal Lab Results - Last 24 Hours (Table) 10/31/21 10/31/21 10/31/21 Range/Units 05:22 05:22 10:44 Lymphocytes # 0.6 L (1.0-4.8) k/uL Glucose 69 L (74-99) mg/dL Total Bilirubin 1.7 H (0.2-1.3) mg/dL Albumin 3.3 L (3.5-5.0) g/dL Amylase <30 L (30-110) U/L Lipase <10 L (23-300) U/L Diabetes panel 10/31/21 Range/Units 05:22 Sodium 142 (137-145) mmol/L Potassium 3.5 (3.5-5.1) mmol/L Chloride 105 (98-107) mmol/L Carbon Dioxide 23 (22-30) mmol/L BUN 17 (7-17) mg/dL Creatinine 0.61 (0.52-1.04) mg/dL Glucose 69 L (74-99) mg/dL Calcium 8.5 (8.4-10.2) mg/dL AST 16 (14-36) U/L ALT 11 (4-34) U/L Alkaline Phosphatase 63 (38-126) U/L Total Protein 6.4 (6.3-8.2) g/dL Albumin 3.3 L (3.5-5.0) g/dL Calcium panel 10/31/21 Range/Units 05:22 Calcium 8.5 (8.4-10.2) mg/dL Albumin 3.3 L (3.5-5.0) g/dL Pituitary panel 10/31/21 Range/Units 05:22 Sodium 142 (137-145) mmol/L Potassium 3.5 (3.5-5.1) mmol/L Chloride 105 (98-107) mmol/L Carbon Dioxide 23 (22-30) mmol/L BUN 17 (7-17) mg/dL Creatinine 0.61 (0.52-1.04) mg/dL Glucose 69 L (74-99) mg/dL Calcium 8.5 (8.4-10.2) mg/dL Adrenal panel 10/31/21 Range/Units 05:22 Sodium 142 (137-145) mmol/L Potassium 3.5 (3.5-5.1) mmol/L Chloride 105 (98-107) mmol/L Carbon Dioxide 23 (22-30) mmol/L BUN 17 (7-17) mg/dL Creatinine 0.61 (0.52-1.04) mg/dL Glucose 69 L (74-99) mg/dL Calcium 8.5 (8.4-10.2) mg/dL Total Bilirubin 1.7 H (0.2-1.3) mg/dL AST 16 (14-36) U/L ALT 11 (4-34) U/L Alkaline Phosphatase 63 (38-126) U/L Total Protein 6.4 (6.3-8.2) g/dL Albumin 3.3 L (3.5-5.0) g/dL
--- NOTE | 2021-10-31 13:32 | P.CNPUL ---
History of Present Illness Consult date: 10/31/21 Chief complaint: abdominal pain, diarrhea History of present illness: 35-year-old female patient with known history of spina bifida who is paralyzed from waist and below and has severe skeletal deformities with severe kyphoscoliosis of the thoracolumbar spine, previous history of TEST CASE DEVELOPER shunts, previous history of multiple urinary tract infection and the patient has a diverting urostomy, we'll came into the emergency department yesterday because of fever and abdominal pain. The patient was having also multiple bouts of diarrhea as the patient's family members have reported a total of 5-6 episodes of liquidy bowel movement in several episodes of emesis. The patient was also diagnosed having a respiratory tract infection/pneumonia on 10/25/2021 for which the patient was given Augmentin and the patient has completed a total of 4 days of antibiotic treatment. Note that at the time of her burst department visit, the patient was reporting some abdominal distention and abdominal pain, crampy in nature and that she had a temperature of 102.6. She was tachycardic with a heart rate of 130 and she was maintaining a normal blood pressure. No respiratory distress. No hypoxemia. Pulse ox was above 90% on room air oxygen. Initial evaluation was done in emergency department and the patient was found to have normal LFTs, normal amylase and lipase, normal renal function, white cell count of 9 with a hemoglobin of 13.8 and a platelet count of 149. Her lactic acid level was at 2.4. Influenza A and B were negative., [place] 19 testing was positive on 10/29/2021 . The patient had a UA that showed 11 WBCs, 1 RBC and +2 ketones. Based on this, the patient was discharged home for symptomatically treatment to be followed up with her primary care physician. The patient continued to be symptomatic and she came back to the [facility] with a repeat CAT scan of the abdomen and pelvis was done with oral contrast and the CAT scan of the abdomen was suboptimal study due to underlying body deformities. Nevertheless there was findings to suggest proximal to mid small bowel obstruction. There was also moderate dilatation of the stomach with more prominence compared to the CAT scan of the abdomen that was done earlier. Note that the CAT scan of the abdomen showed persistent prominent and dilated small bowel loops in the upper and mid abdomen with air-fluid levels. Repeat blood work that was done showed again a white cell count of 7.7 with a hemoglobin of 14.8, renal function was stable. LFTs were normal. Amylase and lipase were negative. The patient had a repeat lactic acid level which came back at 0.8. Hemodynamically, the patient remains stable with a pulse oximetry. Supplement oxygen. Nevertheless, she continued to be tachycardic with a heart rate being sinuses high as 150. Respiration was around 18. BP is around 130/91. Patient was 7 IV fluids and the patient is currently on normal saline at the rate of 75 mL an hour. She was admitted to the hospital accordingly. Review of Systems Constitutional: Reports fatigue, Reports fever, Reports poor appetite, Reports weakness Eyes: denies as per HPI, denies blurred vision, denies bulging eye, denies decreased vision, denies diplopia, denies discharge, denies dry eye, denies irritation, denies itching, denies pain, denies photophobia, denies loss of peripheral vision, denies loss of vision, denies tunnel vision/blind spots Ears: deny: decreased hearing, ear discharge, earache, tinnitus Ears, nose, mouth and throat: Reports as per HPI Breasts: absent: as per HPI, change in shape, gynecomastia, masses, nipple discharge, pain, skin changes, swelling Cardiovascular: Reports decreased exercise tolerance Respiratory: Reports as per HPI Gastrointestinal: Reports diarrhea, Reports loss of appetite, Reports nausea, Reports vomiting Genitourinary: Reports as per HPI (incontinence to urine or patient has a diverting urostomy) Menstruation: Reports as per HPI Musculoskeletal: Reports as per HPI, Reports atrophy, Reports gait dysfunction, Reports limitation of motion ( ), Reports loss of height, Reports muscle weakness Musculoskeletal: absent: ankle pain, ankle stiffness, ankle swelling Integumentary: Reports as per HPI Neurological: Reports gait dysfunction, Reports weakness Psychiatric: Reports as per HPI Endocrine: Reports as per HPI Hematologic/Lymphatic: Reports as per HPI Allergic/Immunologic: Reports as per HPI 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,vesicotomy-urine drains into brief, kidney stones,hydrocephalus,chiari malformation type II,mitral valve regurgitation,scoliosis,focal seizures-no seizures in years History of Any Multi-Drug Resistant Organisms: None Reported Additional Past Surgical History / Comment(s): TEST CASE DEVELOPER shunt-approx 50 surgeries/revisions, reconstructive surgery on head,mult kidney stones procedures,vesicotomy.(greater than 60 surgeries altogether) Past Anesthesia/Blood Transfusion Reactions: Previous Problems w/ Anesthesia Additional Past Anesthesia/Blood Transfusion Reaction / Comment(s): mom-LG, stated "Dorina had a problems being extubated post kidney stone procedure and was on the ventilator 1 1/2 days awake trying to be weaned off. Procedure was at [facility] Aug 2012. But also states has had surgeries after this with general anesthesia without any difficulty,has had over 60 surgeries", faxed request for Anesthesia Record,Pulmonary note, discharge summary for re ference.Very sensitive gag reflex. no hx blood transfusion Past Psychological History: Anxiety Past Alcohol Use History: None Reported Past Drug Use History: None Reported - Past Family History Mother Family Medical History: No Reported History Medications and Allergies Home Medications Medication Instructions Recorded Confirmed Type Enalapril [Vasotec] 2.5 mg PO HS 03/03/19 10/31/21 History Amoxic-Pot Clav 600-42.9MG/5Ml 6.6 ml PO Q12H 10/30/21 10/31/21 History [Augmentin 600-42.9 mg/5 ml Liquid] Allergies Allergy/AdvReac Type Severity Reaction Status Date / Time latex AdvReac dad states Verified 10/31/21 07:34 "hx no rx but used as precautionary" Physical Exam Vitals: Vital Signs Temp Pulse Resp BP Pulse Ox 10/31/21 11:36 141 H 18 94 L 10/31/21 09:56 150 H 20 130/91 100 10/31/21 07:46 98.5 F 129 H 16 116/76 97 10/31/21 01:11 98.2 F 127 H 18 110/75 98 Intake and Output 10/30/21 10/31/21 10/31/21 22:59 06:59 14:59 Other: Weight 19.051 kg Gen. appearance the patient is poorly developed secondary to spina bifida. There is obvious deformity throughout her spine and the patient has hypoplasia and lower eczematous bilaterally. She is paralyzed waist below. SHe is awake and alert and she is not having any acute ST or distress.S third difficulties for now. Breathing is nonlabored. The patient is currently on room air oxygen. Head exam was generally normal. There was no scleral icterus or corneal arcus. Mucous membranes were moist. neck is supple and there is no JVDs and a mucous numbers are essentially dry this point in time. Lungs are diminished bilaterally and the patient has extensive and severe thoracolumbar kyphoscoliosis Cardiac exam revealed the PMI to be normally situated and sized. The rhythm was regular and no extrasystoles were noted during several minutes of auscultation. The first and second heart sounds were normal and physiologic splitting of the second heart sound was noted. There were no murmurs, rubs, clicks, or gallops. Abdomen is soft, slightly distended. Bowel sounds are present and they're hyperactive. No direct tenderness. No rebound tenderness. No guarding. The patient has been getting urostomy just below her umbilicus and urine is leaking from that site. Extremities and hypoplastic in lower extremities and the patient is extensive muscle atrophy. Motor function is absent in lower extremities, diminished in the upper extremity is bilaterally. No cyanosis. No clubbing. Neurologic exam is consistent with spina bifida. The patient was also bilateral ventriculoperitoneal shunts. Examination of the skin revealed no evidence of significant rashes, suspicious appearing nevi or other concerning lesions. Results - Laboratory Findings CBC and BMP: 10/31/21 05:22 10/31/21 05:22 ABG WBC 7.7 k/uL (3.8-10.6) 10/31/21: RBC 4.81 m/uL (3.80-5.40) 10/31/21 05:22 Hgb 14.8 gm/dL (11.4-16.0) 10/31/21 05:22 Hct 44.2 % (34.0-46.0) 10/31/21: MCV 92.1 fL (80.0-100.0) 10/31/21 05:22 MCH 30.8 pg (25.0-35.0) 10/31/21 05:22 MCHC 33.4 g/dL (31.0-37.0) 10/31/21:22 RDW 14.6 % (11.5-15.5) 04/26/22 05:22 Plt Count 205 k/uL (150-450) 10/31/21 05:22 MPV 8.9 10/31/21 05:22 Neutrophils % 83 % 10/31/21 05:22 Lymphocytes % 7 % 10/31/21 05:22 Monocytes % 6 % 10/31/21 05:22 Eosinophils % 0 % 10/31/21 05:22 Basophils % 1 % 10/31/21 05:22 Neutrophils # 6.4 k/uL (1.3-7.7) 10/31/21 05:22 Lymphocytes # 0.6 k/uL (1.0-4.8) L 10/31/21 05:22 Monocytes # 0.5 k/uL (0-1.0) 10/31/21 05:22 Eosinophils # 0.0 k/uL (0-0.7) 10/31/21 05:22 Basophils # 0.1 k/uL (0-0.2) 10/31/21 05:22 Sodium 142 mmol/L (137-145) 10/31/21 05:22 Potassium 3.5 mmol/L (3.5-5.1) 10/31/21 05:22 Chloride 105 mmol/L (98-107) 10/31/21 05:22 Carbon Dioxide 23 mmol/L (22-30) 10/31/21 05:22 Anion Gap 14 mmol/L 10/31/21 05:22 BUN 17 mg/dL (7-17) 10/31/21 05:22 Creatinine 0.61 mg/dL (0.52-1.04) 10/31/21 05:22 Est GFR (CKD-EPI)AfAm >90 (>60 ml/min/1.73 sqM) 10/31/21 05:22 Est GFR (CKD-EPI)NonAf >90 (>60 ml/min/1.73 sqM) 10/31/21 05:22 Glucose 69 mg/dL (74-99) L 10/31/21 05:22 POC Glucose (mg/dL) 85 mg/dL (75-99) 10/31/21 11:32 POC Glu Blister Packaging Machine Operator ID Estela Hope 10/31/21 11:32 Plasma Lactic Acid Alonzo 0.8 mmol/L (0.7-2.0) 10/31/21 10:43 Calcium 8.5 mg/dL (8.4-10.2) 10/31/21 05:22 Total Bilirubin 1.7 mg/dL (0.2-1.3) H 10/31/21 05:22 AST 16 U/L (14-36) 10/31/21 05:22 ALT 11 U/L (4-34) 10/31/21 05:22 Alkaline Phosphatase 63 U/L (38-126) 10/31/21 05:22 Total Protein 6.4 g/dL (6.3-8.2) 10/31/21 05:22 Albumin 3.3 g/dL (3.5-5.0) L 10/31/21 05:22 Amylase <30 U/L (30-110) L 10/31/21 10:44 Lipase <10 U/L (23-300) L 10/31/21 10:44 Abnormal lab findings: Abnormal Labs 10/31/21 10/31/21 10/31/21 05:22 05:22 10:44 Lymphocytes # 0.6 L Glucose 69 L Total Bilirubin 1.7 H Albumin 3.3 L Amylase <30 L Lipase <10 L - Diagnostic Findings Chest x-ray: image reviewed Assessment and Plan Plan: 1 acute COVID 19 infection, diagnosed on 10/30/2021. The patient is not having any acute respiratory difficulties. No evidence of any hypoxemia. 2 abdominal pain/distention with possibility of a partial small bowel obstruction. The stomach is also quite prominent and distended on the CAT scan of the abdomen and pelvis 3 acute diarrhea and emesis, consider underlying C. diff colitis as the patient received Augmentin on outpatient basis. Consider GI manifestation of COVID 19 infection 4 acute sinus tachycardia, consider underlying intravascular volume depletion/dehydration/sepsis 5 spina bifida with extensive thoracolumbar kyphoscoliosis and lower extremity hypoplasia 6 recurrent UTIs and the patient has a diverting urostomy 7 history of hydrocephalus with chiari malformation 2 and the patient has TEST CASE DEVELOPER shunt 8 thoracic kyphoscoliosis autograph 9 history of focal seizures 10 history of mitral valve regurgitation/prolapse 11 hypertension 12 Chiari malformation type II and the patient is bilateral TEST CASE DEVELOPER shunts. Plan Continue with IV fluids with normal saline at the rate of 75 mL an hour Monitor heart rate and put the patient a satellite project site monitor Check stool for C. diff The patient is a case of COVID 19 positive. Nevertheless, the patient not having any respiratory difficulties or hypoxemia. I do not see the need for sy stemic steroids at this point in time. Treatment will be supportive. We'll add vitamin D and vitamin C and zinc orally. We'll check informative markers including LDH and CRP and D dimers. Obtain a consultation with general surgery regarding small bowel obstruction With the patient on Lovenox 30 minutes of daily on a daily basis IV Protonix 20 mg every 24 hours CAT scan of the abdomen was noted Will follow
--- NOTE | 2021-10-31 14:51 | P.HPIM ---
History of Present Illness H&P Date: 10/31/21 Chief Complaint: Abdominal distention This is a 35-year-old patient, follows with Dr. Elif Lopez. Patient has a known spina bifid. Hydrocephalus. CREATIVE SERVICES PRODUCER shunt.vesicotomy. Patient's had multiple surgeries several surgeries mainly at [facility] Patient lives with her parents. Has a wheelchair. She has no fixed bowel regime. In terms of bowel movements. Patient has received double vaccination COVID 19 also booster dose. Patient is accompanied by her father. For 2 days patient started having vomiting. Fever. Diarrhea more than 3 times a day. No blood in the stool. Some shortness of breath. Patient tested positive for COVID-19. At the baseline patient heart rate runs around 120. Patient ER was found to have possible bowel obstruction. Consultation is made to surgery and pulmonary. Patient's abdomen is rather distended Review of systems: GEN.: Tired, fever EYES: None HEENT: None NECK: None RESPIRATORY: As above CARDIOVASCULAR: None GASTROINTESTINAL: As above GENITOURINARY: None MUSCULOSKELETAL: Short limbs LYMPHATICS: None HEMATOLOGICAL: None PSYCHIATRY: Anxious NEUROLOGICAL: Contracted and shortened limbs Past medical history to include: Hypertension, mitral valve prolapse, seizure disorder, spina bifid oh, severe bilateral lower extremity hypoglycemia. No feeling below the waist.vesicotomy. Kidney stone surgery. Hydrocephalus. Chiari malformation type II, mitral valve regurgitation, scoliosis, focal seizures. Patient's had close to 50 surgeries and revisions. Social history: No smoking or alcohol. Lives with her parents. Wheelchair. Family history: Reviewed, noncontributory to presentation Physical examination: VITAL SIGNS: 98.2, 144, 22, 110/76, 98% on 2 L GENERAL: BMI 12.8, sitting up in bed uncomfortable. EYES: Pupils equal. Conjunctiva normal. HEENT: External appearance of nose and ears normal, oral cavity dry mucous membranes. NECK: JVD not raised; masses not palpable. HEART: First and second heart sounds are normal; no edema. LUNGS:[ Respiratory rate increased; decreased breath sounds. ABDOMEN: Soft, distended, some tenderness no guarding rigidity , liver spleen not palpable, no masses palpable,vesocotomy. PSYCH: Able to answer questionsl. MUSCULOSKELETAL: Severe hypokinesis lower extremity. Also undergone left upper extremity NEUROLOGICAL: Some facial asymmetry, no power and sensation lower extremity. LYMPHATICS: No lymph nodes palpable in the axilla and neck INVESTIGATIONS, reviewed in the clinical context: White count 7.7 hemoglobin 14.8 platelets 205 09/05/1940 potassium 3.5 BUN 17 creatinine 0.6 glucose 69 AST 16 ALT 11 Amylase less than 30 COVID 19 PCR: Detected Influenza type A type B: Not detected EKG tracing personally reviewed by me: Sinus tachycardia. Nonspecific ST-T wave changes. Chest x-ray film personally reviewed by me-severe scoliosis/kyphosis. Dilated loops of bowel. Computed tomography scan of the abdomen pelvis: Possible partial/developing mid small bowel obstruction Assessment and plan: -Probable small bowel obstruction. Abdomen is distended. Nothing by mouth. Dr. Hatfield consulted. -COVID-19. Infection. In a patient who's been vaccinated and received a booster dose. Pulse ox is good. Supportive care. -Severe spina bifida -Chronic hydrocephalus with CREATIVE SERVICES PRODUCER shunt with multiple surgeries -Chronic medical debility. Patient is nonambulatory. Has a wheelchair. IV fluids. Nothing by mouth. Supportive care. Telemetry. Consultation to surgery and pulmonary. 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,vesicotomy-urine drains into brief, kidney stones,hydrocephalus,chiari malformation type II,mitral valve regurgitation,scoliosis,focal seizures-no seizures in years History of Any Multi-Drug Resistant Organisms: None Reported Additional Past Surgical History / Comment(s): CREATIVE SERVICES PRODUCER shunt-approx 50 surg eries/revisions, reconstructive surgery on head,mult kidney stones procedures,vesicotomy.(greater than 60 surgeries altogether) Past Anesthesia/Blood Transfusion Reactions: Previous Problems w/ Anesthesia Additional Past Anesthesia/Blood Transfusion Reaction / Comment(s): mom-LG, stated "Dorina had a problems being extubated post kidney stone procedure and was on the ventilator 1 1/2 days awake trying to be weaned off. Procedure was at [facility] Aug 2012. But also states has had surgeries after this with general anesthesia without any difficulty,has had over 60 surgeries", faxed request for Anesthesia Record,Pulmonary note, discharge summary for reference.Very sensitive gag reflex. no hx blood transfusion Past Psychological History: Anxiety Past Alcohol Use History: None Reported Past Drug Use History: None Reported - Past Family History Mother Family Medical History: No Reported History Medications and Allergies Home Medications Medication Instructions Recorded Confirmed Type Enalapril [Vasotec] 2.5 mg PO HS 03/03/19 10/31/21 History Amoxic-Pot Clav 600-42.9MG/5Ml 6.6 ml PO Q12H 10/30/21 10/31/21 History [Augmentin 600-42.9 mg/5 ml Liquid] Allergies Allergy/AdvReac Type Severity Reaction Status Date / Time latex AdvReac dad states Verified 10/31/21 07:34 "hx no rx but used as precautionary" Physical Exam Vitals: Vital Signs Temp Pulse Resp BP Pulse Ox 10/31/21 09:56 150 H 20 130/91 100 10/31/21 07:46 98.5 F 129 H 16 116/76 97 10/31/21 01:11 98.2 F 127 H 18 110/75 98 Intake and Output 10/30/21 10/31/21 10/31/21 22:59 06:59 14:59 Other: Weight 19.051 kg Results CBC & Chem 7: 10/31/21 05:22 10/31/21 05:22 Labs: Abnormal Lab Results - Last 24 Hours (Table) 10/31/21 10/31/21 Range/Units 05:22 05:22 Lymphocytes # 0.6 L (1.0-4.8) k/uL Glucose 69 L (74-99) mg/dL Total Bilirubin 1.7 H (0.2-1.3) mg/dL Albumin 3.3 L (3.5-5.0) g/dL
[2021-10-31] MEDS ORDERED: ACETAMINOPHEN TAB 325 MG TAB PO PRN (20:35)
[2021-10-31] MEDS ORDERED: SODIUM CHLORIDE 0.9% 500 ML 500 ML IV ONE (22:04)
[2021-10-31 22:40] LABS: ABG Base Excess -10.8 mmol/L; ABG HCO3 17 mmol/L (21-25); ABG Oxygen Saturation 98.5 % (94-97); ABG PCO2 39 mmHg (35-45); ABG PH 7.24 (7.35-7.45); ABG PO2 127 mmHg (83-108); ABG TCO2 18 mmol/L (19-24)
[2021-10-31 22:44] LABS: Allen Test Performed? no
--- NOTE | 2021-10-31 23:01 | XR ---
EXAMINATION TYPE: XR chest 1V portable DATE OF EXAM: 10/31/2021 COMPARISON: Today HISTORY: Short of breath TECHNIQUE: Single view FINDINGS: There is no evidence of heart failure nor confluent pneumonic infiltrate. There is severe k yphoscoliotic chest deformity. No pleural effusion. IMPRESSION: Scoliotic deformity. No evidence of acute lung disease. No change compared to exam marifer griffin.
[2021-10-31 23:20] LABS: ALT 9 U/L (4-34); AST 18 U/L (14-36); African American GFR (CKD) >90 (>60 ml/min/1.73 sqM); Albumin 2.7 g/dL (3.5-5.0); Alkaline Phosphatase 68 U/L (38-126); Anion Gap 10 mmol/L; Blood Urea Nitrogen 18 mg/dL (7-17); Calcium 7.7 mg/dL (8.4-10.2); Carbon Dioxide 17 mmol/L (22-30); Chloride 112 mmol/L (98-107); Globulin 2.6 g/dL; Glucose 71 mg/dL (74-99); Non-African American GFR(CKD) >90 (>60 ml/min/1.73 sqM); Potassium 4.3 mmol/L (3.5-5.1); Sodium 139 mmol/L (137-145); Total Bilirubin 0.8 mg/dL (0.2-1.3); Total Protein 5.3 g/dL (6.3-8.2)
[2021-10-31 23:29] LABS: HCT 38.3 % (34.0-46.0); HGB 12.4 gm/dL (11.4-16.0); Hypochromasia Slight; MCH 30.9 pg (25.0-35.0); MCHC 32.4 g/dL (31.0-37.0); MCV 95.3 fL (80.0-100.0); Platelet Count 259 k/uL (150-450); RBC 4.02 m/uL (3.80-5.40); RDW 14.9 % (11.5-15.5); WBC 8.4 k/uL (3.8-10.6)
[2021-11-01 00:33] LABS: Band Neutrophils % 27 %; Lymphocytes # (M) 1.09 k/uL (1.0-4.8); Monocytes # (M) 1.18 k/uL (0-1.0); Neutrophils % (M) 46 %; Nucleated Red Blood Cells 0 /100 WBC (0-0); Total Cells Counted 200
[2021-11-01 00:34] LABS: Poikilocytosis (M) Present
[2021-11-01] MEDS ORDERED: DEXTROSE 5% IN WATER 1,000 ML with SODIUM BICARB (1 MEQ/ML) 150 ML IV SCH ×2 (07:45→14:45)
[2021-11-01] MEDS: PANTOPRAZOLE 40 MG/10 ML VIAL IV SCH (08:37)
[2021-11-01] MEDS ORDERED: ENOXAPARIN 30 MG/0.3 ML SYRINGE SQ SCH (09:00)
[2021-11-01] MEDS ORDERED: ZINC SULFATE 220 MG CAP PO SCH (09:00)
[2021-11-01] MEDS ORDERED: CHOLECALCIFEROL 25 MCG (1000 IU) TABLET PO SCH (09:00)
[2021-11-01] MEDS ORDERED: PIPERACILLIN-TAZOBACTAM 3.375 GM in SODIUM CHLORIDE 0.9% 100 ML IVPB SCH (09:00)
[2021-11-01] MEDS ORDERED: ASCORBIC ACID 500 MG TAB PO SCH (09:00)
--- NOTE | 2021-11-01 10:48 | XR ---
EXAMINATION TYPE: XR abdomen 1V DATE OF EXAM: 11/01/2021 10:41 AM CLINICAL HISTORY: Nausea and vomiting. History of spina bifida. TECHNIQUE: Single supine KUB image of the abdomen is obtained. COMPARISON: CT abdomen and pelvis from yesterday. FINDINGS: Marked deformity due to underlying significant rotary scoliosis redemonstrated making evalu ation significantly suboptimal. Persistent gaseous distended stomach along with gas dilated proximal small bowel loops in the right abdomen. Chronic deformity to the pelvis. IMPRESSION: Findings consistent with proximal to mid small bowel obstruction remain present. No signi ficant interval change.
[2021-11-01 12:40] LABS: HCT 40.1 % (34.0-46.0); HGB 12.1 gm/dL (11.4-16.0); Hypochromasia Marked; MCH 30.9 pg (25.0-35.0); MCHC 30.3 g/dL (31.0-37.0); Macrocytosis Slight; Mean Platelet Volume 8.1; Platelet Count 315 k/uL (150-450); RBC 3.92 m/uL (3.80-5.40); RDW 15.1 % (11.5-15.5); WBC 10.7 k/uL (3.8-10.6)
[2021-11-01 12:42] LABS: MCV 102.2 fL (80.0-100.0)
[2021-11-01 12:48] LABS: ALT 10 U/L (4-34); AST 25 U/L (14-36); African American GFR (CKD) >90 (>60 ml/min/1.73 sqM); Albumin 2.6 g/dL (3.5-5.0); Alkaline Phosphatase 71 U/L (38-126); Anion Gap 16 mmol/L; Blood Urea Nitrogen 21 mg/dL (7-17); Calcium 7.8 mg/dL (8.4-10.2); Carbon Dioxide 12 mmol/L (22-30); Chloride 115 mmol/L (98-107); Glucose 156 mg/dL (74-99); Non-African American GFR(CKD) >90 (>60 ml/min/1.73 sqM); Potassium 3.8 mmol/L (3.5-5.1); Sodium 143 mmol/L (137-145); Total Bilirubin 0.7 mg/dL (0.2-1.3); Total Protein 5.3 g/dL (6.3-8.2)
[2021-11-01 12:50] LABS: Glucose,Whole Blood 148 mg/dL (75-99)
[2021-11-01] MEDS ORDERED: DEXTROSE 5% IN WATER 1,000 ML with SODIUM BICARB (1 MEQ/ML) 50 ML IV SCH (13:00)
--- NOTE | 2021-11-01 13:13 | P.PN ---
Subjective Progress Note Date: 11/01/21 CHIEF COMPLAINT: Abdominal pain HISTORY OF PRESENT ILLNESS: Surgical service is following in regards to small bowel traction. Patient did have a bowel movement reported as loose. Stool for C. diff was ordered. Patient also evaluated by pulmonary service. She does have evidence of covid. Diagnosed on 10/30. She has been tachycardic. They're initially trying to transfer patient to tertiary care facility. They were unable to accept her. She is now in the ICU. WBC is 10.7 hemoglobin 12.1 platelets 3:15 sodium was 143 potassium is 3.8 CO2 is 12 creatinine 0.60 stool for C. diff is negative. Abdominal x-ray findings consistent with a proximal to mid small bowel obstruction PHYSICAL EXAM: VITAL SIGNS: Reviewed. GENERAL: Well-developed in no acute distress. HEENT: No sclera icterus. Extraocular movements grossly intact. Moist buccal mucosa. Head is atraumatic, normocephalic. ABDOMEN: Soft. Nondistended. Nontender. NEUROLOGIC: Alert and oriented. Cranial nerves II through XII grossly intact. ASSESSMENT: 1. Proximal to mid small bowel obstruction 2. Abdominal pain with abdominal distention 3. History of spina bifida with multiple surgeries PLAN: -Patient is now having bowel activity. Advance diet to full liquids -Continue conservative management -Continue supportive care -Continue ICU management Physician Cleaning And Washing Equipment Operator note has been reviewed by physician. Signing provider agrees with the documented findings, assessment, and plan of care. Objective - Vital Signs Vital signs: Vital Signs Temp 96.9 F L 11/01/21 08:45 Pulse 149 H 11/01/21 12:21 Resp 20 11/01/21 12:21 BP 113/74 11/01/21 08:45 Pulse Ox 99 11/01/21 12:21 Intake & Output 10/31/21 11/01/21 11/01/21 18:59 06:59 18:59 Weight 19.051 kg - Labs CBC & Chem 7: 11/01/21 12:16 11/01/21 12:16 Labs: Abnormal Lab Results - Last 24 Hours (Table) 10/31/21 10/31/21 10/31/21 Range/Units 13:58 13:58 13:58 WBC (3.8-10.6) k/uL MCV (80.0-100.0) fL MCHC (31.0-37.0) g/dL Monocytes # (Manual) (0-1.0) k/uL D-Dimer 4.31 H (<0.60) mg/L FEU ABG pH (7.35-7.45) ABG pO2 (83-108) mmHg ABG HCO3 (21-25) mmol/L ABG Total CO2 (19-24) mmol/L ABG O2 Saturation (94-97) % Chloride (98-107) mmol/L Carbon Dioxide (22-30) mmol/L BUN (7-17) mg/dL Glucose (74-99) mg/dL POC Glucose (mg/dL) (75-99) mg/dL Calcium (8.4-10.2) mg/dL C-Reactive Protein 37.0 H (<1.0) mg/dL Total Protein (6.3-8.2) g/dL Albumin (3.5-5.0) g/dL Procalcitonin 5.38 H (0.02-0.09) ng/mL 10/31/21 10/31/21 10/31/21 Range/Units 22:37 22:44 22:44 WBC (3.8-10.6) k/uL MCV (80.0-100.0) fL MCHC (31.0-37.0) g/dL Monocytes # (Manual) 1.18 H (0-1.0) k/uL D-Dimer (<0.60) mg/L FEU ABG pH 7.24 L (7.35-7.45) ABG pO2 127 H (83-108) mmHg ABG HCO3 17 L (21-25) mmol/L ABG Total CO2 18 L (19-24) mmol/L ABG O2 Saturation 98.5 H (94-97) % Chloride 112 H (98-107) mmol/L Carbon Dioxide 17 L (22-30) mmol/L BUN 18 H (7-17) mg/dL Glucose 71 L (74-99) mg/dL POC Glucose (mg/dL) (75-99) mg/dL Calcium 7.7 L (8.4-10.2) mg/dL C-Reactive Protein (<1.0) mg/dL Total Protein 5.3 L (6.3-8.2) g/dL Albumin 2.7 L (3.5-5.0) g/dL Procalcitonin (0.02-0.09) ng/mL 11/01/21 11/01/21 11/01/21 Range/Units 12:16 12:16 12:38 WBC 10.7 H (3.8-10.6) k/uL MCV 102.2 H D (80.0-100.0) fL MCHC 30.3 L (31.0-37.0) g/dL Monocytes # (Manual) (0-1.0) k/uL D-Dimer (<0.60) mg/L FEU ABG pH (7.35-7.45) ABG pO2 (83-108) mmHg ABG HCO3 (21-25) mmol/L ABG Total CO2 (19-24) mmol/L ABG O2 Saturation (94-97) % Chloride 115 H (98-107) mmol/L Carbon Dioxide 12 L (22-30) mmol/L BUN 21 H (7-17) mg/dL Glucose 156 H (74-99) mg/dL POC Glucose (mg/dL) 148 H (75-99) mg/dL Calcium 7.8 L (8.4-10.2) mg/dL C-Reactive Protein (<1.0) mg/dL Total Protein 5.3 L (6.3-8.2) g/dL Albumin 2.6 L (3.5-5.0) g/dL Procalcitonin (0.02-0.09) ng/mL
[2021-11-01 13:36] VITALS: TEMP 98.1
[2021-11-01 13:42] LABS: Lymphocytes # (M) 1.93 k/uL (1.0-4.8); Monocytes # (M) 1.18 k/uL (0-1.0); Nucleated Red Blood Cells 0 /100 WBC (0-0)
[2021-11-01 13:44] LABS: Band Neutrophils % 5 %; Neutrophils % (M) 67 %; Total Cells Counted 200
[2021-11-01 13:46] LABS: Poikilocytosis (M) Present
[2021-11-01 14:00] VITALS: BMI 12.8
--- NOTE | 2021-11-01 14:38 | P.PN ---
Subjective Progress Note Date: 11/01/21 On today's evaluation of 11/01/2021, the patient was seen in the emergency department. Overnight, transferred downfor this patient to other facilities including [facility] and [facility] due to the complicated nature of her disease. We have been able to get a final clearance for transfer. Meanwhile, the patient's condition changes. Yesterday evening, the patient became progressively more altered mentally and ileus. At that point, the patient's labs were repeated. The patient's white cell count remained low at 8.4. Nevertheless, the patient was found to have significant bandemia and order of 27,000. The blood gases showed a pH of 7.24 with a pCO2 of 39 and pO2 of 127 and this was on FiO2 of 28%. The patient developed also a component of non- anion gap metabolic acidosis with a serum bicarb of 17 and anion gap of 10. The patient was started on a bicarb infusion. The patient was also started on empiric antibiotic coverage with IV Zosyn. The pro calcitonin level came back at 5.38. Stool for C. diff came back negative. She had another bout of diarrhea. No emesis. Abdomen is less tender compared to yesterday. The blood cultures of been sent. . The patient remains tachycardic and a heart rate is around 1:30, sinus. Most recent blood pressure is soft and 95/71 and the family is at the bedside. We are still awaiting for transfer this patient to a tertiary care center Objective - Vital Signs Vital signs: Vital Signs Temp 98.1 F 11/01/21 13:00 Pulse 131 H 11/01/21 13:30 Resp 10 L 11/01/21 13:30 BP 95/71 11/01/21 13:00 Pulse Ox 100 11/01/21 13:30 Intake & Output 10/31/21 11/01/21 11/01/21 18:59 06:59 18:59 Weight 19.051 kg - Exam Gen. appearance the patient is poorly developed secondary to spina bifida. There is obvious deformity throughout her spine and the patient has hypoplasia and lower eczematous bilaterally. She is paralyzed waist below. SHe is awake and alert and she is not having any acute ST or distress.S third difficulties for now. Breathing is nonlabored. The patient is currently on room air oxygen. Head exam was generally normal. There was no scleral icterus or corneal arcus. Mucous membranes were moist. neck is supple and there is no JVDs and a mucous numbers are essentially dry this point in time. Lungs are diminished bilaterally and the patient has extensive and severe thoracolumbar kyphoscoliosis Cardiac exam revealed the PMI to be normally situated and sized. The rhythm was regular and no extrasystoles were noted during several minutes of auscultation. The first and second heart sounds were normal and physiologic splitting of the second heart sound was noted. There were no murmurs, rubs, clicks, or gallops. Abdomen is soft, slightly distended. Bowel sounds are present and they're hyperactive. No direct tenderness. No rebound tenderness. No guarding. The patient has been getting urostomy just below her umbilicus and urine is leaking from that site. Extremities and hypoplastic in lower extremities and the patient is extensive muscle atrophy. Motor function is absent in lower extremities, diminished in the upper extremity is bilaterally. No cyanosis. No clubbing. Neurologic exam is consistent with spina bifida. The patient was also bilateral ventriculoperitoneal shunts. Examination of the skin revealed no evidence of significant rashes, suspicious appearing nevi or other concerning lesions. - Labs CBC & Chem 7: 11/01/21 12:16 11/01/21 12:16 Labs: Abnormal Lab Results - Last 24 Hours (Table) 10/31/21 10/31/21 10/31/21 Range/Units 13:58 13:58 13:58 WBC (3.8-10.6) k/uL MCV (80.0-100.0) fL MCHC (31.0-37.0) g/dL Monocytes # (Manual) (0-1.0) k/uL D-Dimer 4.31 H (<0.60) mg/L FEU ABG pH (7.35-7.45) ABG pO2 (83-108) mmHg ABG HCO3 (21-25) mmol/L ABG Total CO2 (19-24) mmol/L ABG O2 Saturation (94-97) % Chloride (98-107) mmol/L Carbon Dioxide (22-30) mmol/L BUN (7-17) mg/dL Glucose (74-99) mg/dL POC Glucose (mg/dL) (75-99) mg/dL Calcium (8.4-10.2) mg/dL C-Reactive Protein 37.0 H (<1.0) mg/dL Total Protein (6.3-8.2) g/dL Albumin (3.5-5.0) g/dL Procalcitonin 5.38 H (0.02-0.09) ng/mL 10/31/21 10/31/21 10/31/21 Range/Units 22:37 22:44 22:44 WBC (3.8-10.6) k/uL MCV (80.0-100.0) fL MCHC (31.0-37.0) g/dL Monocytes # (Manual) 1.18 H (0-1.0) k/uL D-Dimer (<0.60) mg/L FEU ABG pH 7.24 L (7.35-7.45) ABG pO2 127 H (83-108) mmHg ABG HCO3 17 L (21-25) mmol/L ABG Total CO2 18 L (19-24) mmol/L ABG O2 Saturation 98.5 H (94-97) % Chloride 112 H (98-107) mmol/L Carbon Dioxide 17 L (22-30) mmol/L BUN 18 H (7-17) mg/dL Glucose 71 L (74-99) mg/dL POC Glucose (mg/dL) (75-99) mg/dL Calcium 7.7 L (8.4-10.2) mg/dL C-Reactive Protein (<1.0) mg/dL Total Protein 5.3 L (6.3-8.2) g/dL Albumin 2.7 L (3.5-5.0) g/dL Procalcitonin (0.02-0.09) ng/mL 11/01/21 11/01/21 11/01/21 Range/Units 12:16 12:16 12:38 WBC 10.7 H (3.8-10.6) k/uL MCV 102.2 H D (80.0-100.0) fL MCHC 30.3 L (31.0-37.0) g/dL Monocytes # (Manual) 1.18 H (0-1.0) k/uL D-Dimer (<0.60) mg/L FEU ABG pH (7.35-7.45) ABG pO2 (83-108) mmHg ABG HCO3 (21-25) mmol/L ABG Total CO2 (19-24) mmol/L ABG O2 Saturation (94-97) % Chloride 115 H (98-107) mmol/L Carbon Dioxide 12 L (22-30) mmol/L BUN 21 H (7-17) mg/dL Glucose 156 H (74-99) mg/dL POC Glucose (mg/dL) 148 H (75-99) mg/dL Calcium 7.8 L (8.4-10.2) mg/dL C-Reactive Protein (<1.0) mg/dL Total Protein 5.3 L (6.3-8.2) g/dL Albumin 2.6 L (3.5-5.0) g/dL Procalcitonin (0.02-0.09) ng/mL Assessment and Plan Plan: 1 acute COVID 19 infection, diagnosed on 10/30/2021. The patient is not having any acute respiratory difficulties. No evidence of any hypoxemia. 2 abdominal pain/distention with possibility of a partial small bowel obstruction. The stomach is also quite prominent and distended on the CAT scan of the abdomen and pelvis. Nevertheless, the patient was having bouts of diarrhea and the patient had stool sample collected which tested negative for C. diff. Lactic acid level was nonelevated. Nevertheless, the Pronestyl level was elevated and the patient had bandemia an underlying sepsis was suspected and the patient was started on IV Zosyn. 3 acute diarrhea and emesis, and the patient a negative C. diff evaluation. Consider GI manifestation of COVID 19 infection 4 acute sinus tachycardia, consider underlying sepsis and the patient remains on IV fluids and the patient was switched a bicarb infusion. 5 spina bifida with extensive thoracolumbar kyphoscoliosis and lower extremity hypoplasia 6 recurrent UTIs and the patient has a diverting urostomy 7 history of hydrocephalus with chiari malformation 2 and the patient has [employer] shunt 8 thoracic kyphoscoliosis autograph 9 history of focal seizures 10 history of mitral valve regurgitation/prolapse 11 hypertension 12 Chiari malformation type II and the patient is bilateral [employer] shunts. 13 sinus tachycardia, consider underlying sepsis 14 non-anion gap metabolic acidosis, could be related to diarrhea 15 elevated pro calcitonin level indicating possibility of underlying infection/sepsis Plan Continue with IV fluids in the form of bicarb infusion Cover the patient with IV Zosyn Blood cultures are pending for now Monitor heart rate and put the patient a athletic monitor Check stool for C. diff do not to be negative for C. diff The patient is a case of COVID 19 positive. Inflammatory markers are mildly katiana vated including d-dimer and the patient is currently on Lovenox 30 mg subcu 40 to prophylaxis IV Protonix 20 mg every 24 hours Chest with this patient to the intensive care unit pending transfer to another center specializing in taking care of complicated cases of spina bifida Will follow
[2021-11-01 14:54] VITALS: BP 112/81
[2021-11-01] MEDS ORDERED: FUROSEMIDE 10 MG/ML 2 ML VIAL IV ONE (15:15)
[2021-11-01 15:16] VITALS: PULSE 156; RESP 27
--- NOTE | 2021-11-01 19:16 | P.DS ---
Providers Date of admission: 10/31/21 07:22 Expected date of discharge: 11/01/21 Attending physician: Khoi Carpio Consults: 10/31/21 07:20 Consult Physician Routine Consulting Provider: Alfreda Alegre Consult Reason/Comments: dr carpio request Do you want consulting provider notified?: Yes 10/31/21 07:21 Consult Physician Urgent Consulting Provider: Александр Hatfield Consult Reason/Comments: SBO Do you want consulting provider notified?: Yes Primary care physician: Elif Lopez [place] Course: Chief Complaint: Abdominal distention This is a 35-year-old patient, follows with Dr. Elif Lopez. Patient has a known spina bifid. Hydrocephalus. [employer] shunt.vesicotomy. Patient's had multiple surgeries several surgeries mainly at [facility]. Patient lives with her parents. Has a wheelchair. She has no fixed bowel regime. In terms of bowel movements. Patient has received double vaccination COVID 19 also booster dose. Patient is accompanied by her father. For 2 days patient started having vomiting. Fever. Diarrhea more than 3 times a day. No blood in the stool. Some shortness of breath. Patient tested positive for COVID-19. At the baseline patient heart rate runs around 120. Patient ER was found to have possible bowel obstruction. Consultation is made to surgery and pulmonary. Patient's abdomen is rather distended November 01: Patient is seen in the ER overflow medical admission. On nasal cannula. A bit delirious. Acidotic. Sodium bicarbonate drip started. Sepsis picture. IV Zosyn started. Discussed with Dr. Alegre patient was transferred to ICU. Spoke to patient's father mother and the sister the bedside. Spoke to the transfer team at [place]. Admission decline. Spoke to the surgical ICU physician at [facility]. Patient accepted. Repeat abdominal x-ray showed bowel obstruction. Patient did have some bowel movement earlier today. Discussion and discharge planning more than 1 hour today Past medical history to include: Hypertension, mitral valve prolapse, seizure disorder, spina bifid oh, severe bilateral lower extremity hypoglycemia. No feeling below the waist.vesicotomy. Kidney stone surgery. Hydrocephalus. Chiari malformation type II, mitral valve regurgitation, scoliosis, focal seizures. Patient's had close to 50 surgeries and revisions. Social history: No smoking or alcohol. Lives with her parents. Wheelchair. Family history: Reviewed, noncontributory to presentation Physical examination: VITAL SIGNS: 0.9, 138, 21, 95/71, 100% on room air GENERAL: Sitting up in bed, delirious. EYES: Pupils equal. Conjunctiva normal. HEENT: External appearance of nose and ears normal, oral cavity dry mucous membranes. NECK: JVD not raised; masses not palpable. HEART: First and second heart sounds are normal; no edema. LUNGS:[ Respiratory rate increased; decreased breath sounds. ABDOMEN: Soft, distended, some tenderness no guarding rigidity , liver spleen not palpable, no masses palpable,vesocotomy. PSYCH: Able to answer some questions. MUSCULOSKELETAL: Severe hypoplasia lower extremity. NEUROLOGICAL: Some facial asymmetry, no power and sensation lower extremity. INVESTIGATIONS, reviewed in the clinical context: November 01: White count 10.7 hemoglobin 12.1 platelets 315 potassium 3.8 creatinine 0.6. Abdominal x-ray film personally reviewed by me: Distended bowels C. diff: Negative. Procalcitonin 5.38 White count 7.7 hemoglobin 14.8 platelets 205 09/05/1940 potassium 3.5 BUN 17 creatinine 0.6 glucose 69 AST 16 ALT 11 Amylase less than 30 COVID 19 PCR: Detected Influenza type A type B: Not detected EKG tracing personally reviewed by me: Sinus tachycardia. Nonspecific ST-T wave changes. Chest x-ray film personally reviewed by me-severe scoliosis/kyphosis. Dilated loops of bowel. Computed tomography scan of the abdomen pelvis: Possible partial/developing mid small bowel obstruction Assessment and plan: - small bowel obstruction.: Not improving Nothing by mouth. Dr. Hatfield. -Sepsis IV Zosyn started. IV fluids -Metabolic acidosis from sepsis Sodium bicarbonate drip -Hypoalbuminemia, acute phase reactant -COVID-19. Infection. In a patient who's been vaccinated and received a booster dose. Pulse ox is good. Supportive care. -Severe spina bifida -Chronic hydrocephalus with [employer] shunt with multiple surgeries -Chronic medical debility. Patient is nonambulatory. Has a wheelchair. Disposition: Patient being transferred to ICU at [facility]. For high level of care. Patient's had multiple surgeries in the past. Plan - Discharge Summary Discharge Rx Participant: No New Discharge Prescriptions: No Action Enalapril [Vasotec] 2.5 mg PO HS Amoxic-Pot Clav 600-42.9MG/5Ml [Augmentin 600-42.9 mg/5 ml Liquid] 6.6 ml PO Q12H Discharge Medication List Enalapril [Vasotec] 2.5 mg PO HS 03/03/19 [History] Amoxic-Pot Clav 600-42.9MG/5Ml [Augmentin 600-42.9 mg/5 ml Liquid] 6.6 ml PO Q12H 10/30/21 [History] Follow up Appointment(s)/Referral(s): Elif Lopez MD [Primary Care Provider] - 1-2 days Discharge Disposition: TRANSFER TO SHORT TERM HOSP
== END 2021-11-01 15:25 | disposition short-term general hospital (02) | DRG 388 ==
LOC: EC 00:51 → 5NMEDONC 07:22 → 4SSUR 07:31 → 2SICU 11-01 10:29
PROVIDERS: ADMIT Hospitalist; ATTEND Hospitalist
DX: K56.600 Partial intestinal obstruction, unspecified as to cause (principal); A41.89 Other specified sepsis; J12.82 Pneumonia due to coronavirus disease 2019; U07.1 COVID-19; Q07.03 Arnold-Chiari syndrome with spina bifida and hydrocephalus; E87.2 Acidosis; K56.7 Ileus, unspecified; E87.6 Hypokalemia; E88.09 Other disorders of plasma-protein metabolism, not elsewhere classified; F41.9 Anxiety disorder, unspecified; G40.909 Epilepsy, unspecified, not intractable, without status epilepticus; I34.1 Nonrheumatic mitral (valve) prolapse; I10 Essential (primary) hypertension; M41.9 Scoliosis, unspecified; I34.0 Nonrheumatic mitral (valve) insufficiency; Z98.2 Presence of cerebrospinal fluid drainage device; Z91.040 Latex allergy status; Z87.442 Personal history of urinary calculi; Z87.440 Personal history of urinary (tract) infections
CPT/HCPCS: 36415; 36600; 71045; 74018; 74176; 74177; 80053; 82150; 82805; 83605; 83615; 83690; 84145; 85025; 85379; 86140; 87040; 87324; 93005; 96361; 96365; 96366; 96375; 99285